=== PATIENT | male | born 1945 | race Caucasian/White ===

== ENCOUNTER 2016-09-10 15:44 | Inpatient (IN) ==
--- NOTE | 2016-09-10 19:29 | Orthopedic Consult Note ---
Date of Encounter: 09/10/16 Time of Encounter: 19:26 Assessment and Plan (1) Hip fracture, left Current Visit: Yes Status: Acute Patient sustained a left hip fracture today, transferred from [facility] for surgical management. He has few comorbities and should be relatively low risk for surgery. Hospitalist following. Plan is for surgery Saturday with . Consent discussed and reviewed with the patient. Left Hip Open reduction and intramedullary nail fixation. He is currently NWB, bed rest, has a scott catheter in currently. Starting foot pumps. ICE as needed Encouraged ankle ROM exercises and IS. Qualifiers: Encounter type: initial encounter Fracture type: closed Qualified Code(s) : S72.002A - Fracture of unspecified part of neck of left femur, initial encounter for closed fracture History of Present Illness Chief complaint: Fall - Left Hip Fracture HPI: Mr. Mao is a 71 year old male, A&O x 3. He presented to ED from [facility]. He had a mechanical fall off a ladder today, falling directly on Left Hip. He denies N/T, LOC, syncope, dizziness. He is unable to ambulate secondary to pain. His pain radiates to his posterior leg. Left leg is shortened and ER. He denies any previous trauma or injury to hip. He has had a wrist fracture and cervical surgery in the past. He has few comorbidities. Past Med Surg Social Fam HX - Past Medical History Medical history: hypertension Psychiatric history: no psych history - Social History Smoking Status: Never smoker Smokeless Tobacco Status: No Alcohol use: none Drug use: none - Family History Father Living Status: Hx Family Cardiac Disorders: Yes ([place]) Hx Family Endocrine Disorder: Yes (DM) Medications and Allergies Allopurinol [Zyloprim] 300 mg PO DAILY 09/10/16 [History] Amlodipine Besylate 10 mg PO DAILY 09/10/16 [History] Aspirin Enteric Coated [Aspirin EC] 81 mg PO DAILY 09/10/16 [History] Hydrochlorothiazide [Microzide] 12.5 mg PO DAILY 09/10/16 [History] Metformin HCl [Metformin HCl ER] 500 mg PO DAILY 09/10/16 [History] [place]-3 Fatty Acids [Fish Oil Concentrate] 1,000 mg PO DAILY 09/10/16 [History] Prazosin HCl [Minipress] 5 mg PO BID 04/03/17 [History] Allergies No Known Allergies Allergy (Verified 08/21/16 20:51) All Systems Reviewed: A 10-system review of systems was performed and is negative for pertinent findings except as documented above in the HPI. - Constitutional Constitutional: as per HPI - Cardiovascular Cardiovascular: as per HPI, no chest pain, no dyspnea, no syncope - Respiratory Respiratory: no cough, no dyspnea, no wheezing - Musculoskeletal Musculoskeletal: abnormal gait, joint swelling, limited range of motion, radiating pain into limb, no numbness, no stiffness Physical Exam - Constitutional Vitals: Temp Pulse Resp BP Pulse Ox 98.8 F 88 16 157/84 93 09/10/16 17:22 09/10/16 17:22 09/10/16 17:22 09/10/16 17:22 09/10/16 17:22 - Fracture left hip Location of fracture: Left Hip Appearance: other (Left leg shortened and ER) Open wound: No open wounds. No ecchymosis or erythema noted. Compartments: soft Distal extremity neurovascularly intact: Yes Proximal joint involvement: No Distal joint involvement: No Results - Labs Labs: All other labs normal. - Diagnostic results Hip x-ray: report reviewed, image reviewed Consult Discharge Plan - Plan Referrals: Lety Ibarra, PROGRAM SERVICES ASSISTANT [Primary Care Provider] -
[2016-09-10 19:41] LABS: INR 1.2; Prothrombin Time 13.1 Seconds (9.4-12.1)
[2016-09-10 19:43] LABS: Basophils % 0.3 %; Eosinophils % 0.1 %; Hematocrit 35.4 % (37.5-50.1); Hemoglobin 12.3 g/dL (12.9-16.9); Immature Granulocytes % 0.6 % (0-4); Lymphocytes # 1.5 K/mcL (0.6-4.6); Lymphocytes % 9.5 %; Mean Corpuscular HGB Conc 34.7 g/dL (31.6-35.5); Mean Corpuscular Hemoglobin 30.8 pg (28.0-33.3); Mean Corpuscular Volume 88.7 fL (83.0-100.0); Mean Platelet Volume 10.2 fL (9.4-12.4); Monocytes % 6.5 %; Neutrophils # 12.9 K/mcL (1.6-8.9); Platelet Count 192 K/mcL (140-400); Red Blood Count 3.99 M/mcL (4.19-5.50); Red Cell Distribution Width 13.7 % (11.5-14.5)
[2016-09-10 19:44] LABS: Activated Partial Thrombo Time 30.8 Seconds (26.0-36.0)
[2016-09-10 19:49] LABS: BUN/Creatinine Ratio 23 (6-26); Blood Urea Nitrogen 21 mg/dL (8-26); Calcium 9.1 mg/dL (8.6-10.8); Carbon Dioxide 23 mEq/L (19-29); Chloride 106 mEq/L (98-109); Glucose 123 mg/dL (70-99); Osmolality,Calculated 296 (280-300); Potassium 4.2 mEq/L (3.5-4.5); Sodium 141 mEq/L (136-145); eGFR For African Americans > 60 (> 60); eGFR For Non-African Americans > 60 (> 60)
--- NOTE | 2016-09-10 20:09 | Internal Med History&Physical ---
Date of Encounter: 09/10/16 Time of Encounter: 20:06 Assessment and Plan (1) Hip fracture, left Current visit: Yes Status: Acute Management per orthopedic surgery. Pain control. Qualifiers: Encounter type: initial encounter Fracture type: closed Qualified Code(s) : S72.002A - Fracture of unspecified part of neck of left femur, initial encounter for closed fracture (2) Intractable pain Current visit: Yes Status: Acute Secondary to hip fracture. Pain control medication. (3) Hypertension Current visit: Yes Status: Acute Resume home medications. Continue monitoring. Qualifiers: Hypertension type: essential hypertension Qualified Code(s): I10 - Essential (primary) hypertension (4) DVT prophylaxis Current visit: Yes Status: Acute DVT prophylaxis according to hospital protocol. (5) Type 2 diabetes mellitus Current visit: Yes Status: Acute Patient on metformin at home, hold metformin while inpatient Monitor Accu-Cheks. Insulin therapy while in-house. Qualifiers: Diabetes mellitus complication status: without complication Diabetes mellitus penitentiary insulin use: without penitentiary use Qualified Code(s): E11.9 - Type 2 diabetes mellitus without complications (6) Hyperlipidemia Current visit: Yes Status: Acute Qualifiers: Hyperlipidemia type: unspecified Qualified Code(s): E78.5 - Hyperlipidemia , unspecified (7) Gallstones Current visit: Yes Status: Acute Asymptomatic at this point. Internal Medicine - H&P: HPI Chief complaint: I had a fall Admitted From: Hospital to Hospital Transfer Plans for Post Hospital Care: [facility] History of present illness: Mr. Mao is a 71 year old male with past medical history of hypertension, diabetes, hyperlipidemia, gallstones, osteoarthritis. The patient states that he had a fall from a ladder today, was found to have a hip fracture and was transferred from [facility] to [facility] for further management and workup. He has been evaluated by the orthopedic surgery team and will be scheduled for the OR accordingly (Left Hip Open reduction and intramedullary nail fixation). At this point he states his pain is 4 out of 10, he denies fever, shortness of breath, diarrhea, constipation, syncope, chest pain, cough, wheezing, skin rash. The patient is very pleasant, he was seen and examined at bedside. The patient denies history of strokes, coronary artery disease, congestive heart failure, chronic kidney disease, chronic liver disease, BPH. He denied the use of Plavix or anticoagulation. He states that has been using 81 mg aspirin on a regular basis, however he did not take it today. Past Med Surg Social Fam HX - Past Medical History Medical history: arthritis, diabetes, hyperlipidemia, hypertension Psychiatric history: no psych history - Social History Smoking Status: Never smoker Smokeless Tobacco Status: No Alcohol use: none Drug use: none - Family History Father Living Status: Hx Family Cardiac Disorders: Yes ([place]) Hx Family Endocrine Disorder: Yes (DM) Internal Medicine - H&P: Meds Allopurinol [Zyloprim] 300 mg PO DAILY 09/10/16 [History] Amlodipine Besylate 10 mg PO DAILY 09/10/16 [History] Aspirin Enteric Coated [Aspirin EC] 81 mg PO DAILY 09/10/16 [History] Hydrochlorothiazide [Microzide] 12.5 mg PO DAILY 09/10/16 [History] Metformin HCl [Metformin HCl ER] 500 mg PO DAILY 09/10/16 [History] [place]-3 Fatty Acids [Fish Oil Concentrate] 1,000 mg PO DAILY 09/10/16 [History] Prazosin HCl [Minipress] 5 mg PO BID 09/10/16 [History] Allergies No Known Allergies Allergy (Verified 08/21/16 20:51) All Systems PM: A 10-system review of systems was performed and is negative for pertinent findings except as documented above in the HPI. - Constitutional Constitutional: as per HPI, no chills, no fever(s), no night sweats - EENT Eyes: as per HPI, no change in vision, no discharge, no pain, no photophobia Ears: as per HPI, no ear discharge, no ear pain, no tinnitus Nose, mouth and throat: as per HPI, no dysphagia, no nasal discharge, no neck pain, no sore throat - Breasts Breasts: as per HPI - Cardiovascular Cardiovascular ROS IM: as per HPI, no chest pain, no diaphoresis, no dyspnea, no lightheadedness, no palpitations, no syncope - Respiratory Respiratory: as per HPI, no cough, no dyspnea, no wheezing, no excessive phlegm production - Gastrointestinal Gastrointestinal: as per HPI, no abdominal pain, no diarrhea, no hematemesis, no hematochezia, no melena, no nausea, no vomiting - Genitourinary Genitourinary ROS male: as per HPI - Musculoskeletal Musculoskeletal ROS IM: as per HPI, no numbness, no tingling - Integumentary Integumentary IM: as per HPI, no rash, no unusual bruising - Neurological Neurological ROS: as per HPI, no confusion, no convulsions, no focal weakness, no numbness, no tingling, no tremor(s) - Psychiatric Psychiatric: as per HPI - Endocrine Endocrine IM: as per HPI - Hematologic/Lymphatic Hematologic/Lymphatic: as per HPI, no easy bruising - Allergic/Immunologic Allergic/Immunologic: as per HPI - Constitutional Vitals: Temp Pulse Resp BP Pulse Ox 98.7 F 86 16 143/72 94 09/10/16 19:28 09/10/16 19:28 09/10/16 19:28 09/10/16 19:28 09/10/16 19:28 General appearance: Present: cooperative, A&O X 3, pleasant, no acute distress Exam: Patient is very pleasant, he is alert, awake, oriented, he was breathing with a nasal cannula, however he was not in respiratory distress. - Head Head exam: Present: atraumatic, normocephalic - Eye Eye exam: Present: PERRL, conjuntiva pink, sclera anicteric Pupils: Present: PERRL - Neck Neck exam general surgery: Present: supple, trachea midline. Absent: lymphadenopathy - Respiratory Respiratory exam: Present: CTAB. Absent: accessory muscle use, rales, rhonchi, wheezes - Cardiovascular Cardiovascular exam: Present: RRR, +S1, +S2. Absent: diastolic murmur, gallop, rubs, systolic murmur - GI/Abdominal GI/Abdominal exam: Present: normal bowel sounds, soft, no peritoneal signs. Absent: distended, tenderness - Extremities Exam Extremities exam: Present: warm, radial pulses palpable and symetrical. Absent : calf tenderness, cyanotic, pedal edema Additional comments: Left lower extremity shortening with external rotation. - Neurological Exam Neurological exam: Present: CN II-XII intact, oriented X3, no focal deficits. Absent: pronater drift, facial droop, speech deficit - Skin Skin exam: Present: dry, intact Internal Med - H&P Results - Labs CBC & Chem 7: 09/10/16 19:02 09/10/16 19:02 Labs: Short CBC 09/10/16 Range/Units 19:02 WBC 15.5 H (4.3-11.1) K/mcL Hgb 12.3 L (12.9-16.9) g/dL Hct 35.4 L (37.5-50.1) % Plt Count 192 (140-400) K/mcL Neutrophils # 12.9 H (1.6-8.9) K/mcL BMP 09/10/16 19:02 Sodium 141 Potassium 4.2 Chloride 106 Carbon Dioxide 23 BUN 21 Creatinine 0.91 Glucose 123 H Calcium 9.1
[2016-09-10] MEDS ORDERED: Dextrose Gel 15 GM PO PRN ×4 (20:17→20:21)
[2016-09-10] MEDS ORDERED: D5% in Water 1,000 ML IVC PRN ×2 (20:17→20:21)
[2016-09-10] MEDS ORDERED: Ondansetron 4 MG/2 ML VIAL IVP PRN (20:17)
[2016-09-10] MEDS ORDERED: Acetaminophen 325 MG TABLET PO PRN (20:17)
[2016-09-10] MEDS ORDERED: *HR* Dextrose 50 % in Water (Syg) 50 ML SYRINGE IVP PRN ×2 (20:17→20:21)
[2016-09-10] MEDS ORDERED: Naloxone 0.4 MG/ML INJ IVP PRN (20:17)
[2016-09-10] MEDS: *HR* OxyCODONE Immed Rel 5 MG TABLET PO PRN (22:27)
[2016-09-10] MEDS: Insulin LISPRO 300 UNITS/3 ML VIAL SQ SCH (22:28)
[2016-09-10] MEDS: 0.9 % Sodium Chloride 1,000 ML IVC SCH (22:29)
[2016-09-11] MEDS: *HR* OxyCODONE Immed Rel 5 MG TABLET PO PRN ×3 (04:25→17:53)
[2016-09-11] MEDS: Famotidine 20 MG/2 ML VIAL IVP SCH ×2 (04:25→16:25)
[2016-09-11] MEDS: *HR* Morphine 2 MG/ML SYRINGE IVP PRN (06:12)
--- NOTE | 2016-09-11 06:55 | Orthopedics Progress Note ---
Date of Encounter: 09/11/16 Time of Encounter: 06:54 Subjective Interval history: Patient seen this morning status post fall yesterday with subtrochanteric left hip fracture. Reviewed risks and benefits as well as recovery of surgery plans for surgery in the morning. Objective Vital signs: Vital Signs Temp Pulse Resp BP Pulse Ox 09/11/16 06:35 98.6 F 72 14 132/73 99 09/11/16 04:38 94 09/11/16 04:14 98.9 F 81 15 129/74 96 09/10/16 23:59 98.9 F 86 19 113/73 95 09/10/16 19:28 98.7 F 86 16 143/72 94 09/10/16 17:22 98.8 F 88 16 157/84 93 Intake and Output 09/10/16 09/10/16 09/11/16 15:59 23:59 07:59 Intake Total 400 / 400 350 / 350 Output Total 850 / 850 625 / 625 Balance -450 / -450 -275 / -275 Intake: Oral 400 / 400 350 / 350 Output: Catheter 850 / 850 625 / 625 Other: Weight 93.712 kg Blood Glucose* 141 - Labs CBC & BMP: 09/10/16 19:02 09/10/16 19:02 Labs: Abnormal lab results WBC 15.5 K/mcL (4.3-11.1) H 09/10/16 19:02 RBC 3.99 M/mcL (4.19-5.50) L 09/10/16 19:02 Hgb 12.3 g/dL (12.9-16.9) L 09/10/16 19:02 Hct 35.4 % (37.5-50.1) L 09/10/16 19:02 Neutrophils # 12.9 K/mcL (1.6-8.9) H 09/10/16 19:02 PT 13.1 Seconds (9.4-12.1) H 09/10/16 19:02 Glucose 123 mg/dL (70-99) H 09/10/16 19:02 POC Glucose 141 (58-89) H 09/10/16 22:27 - VTE Documentation of Mechanical Device: Intermittent pneumatic compression device Consult Discharge Plan - Plan Referrals: Lety Ibarra, ARMORING MACHINE OPERATOR [Primary Care Provider] -
[2016-09-11 07:06] LABS: Basophils % 0.2 %; Eosinophils % 0.4 %; Hematocrit 34.8 % (37.5-50.1); Hemoglobin 11.7 g/dL (12.9-16.9); Immature Granulocytes % 0.6 % (0-4); Lymphocytes # 1.7 K/mcL (0.6-4.6); Lymphocytes % 15.4 %; Mean Corpuscular HGB Conc 33.6 g/dL (31.6-35.5); Mean Corpuscular Hemoglobin 30.1 pg (28.0-33.3); Mean Corpuscular Volume 89.5 fL (83.0-100.0); Mean Platelet Volume 9.9 fL (9.4-12.4); Monocytes # 0.9 K/mcL (0.0-1.3); Monocytes % 7.6 %; Neutrophils # 8.6 K/mcL (1.6-8.9); Platelet Count 171 K/mcL (140-400); Red Blood Count 3.89 M/mcL (4.19-5.50); Red Cell Distribution Width 13.7 % (11.5-14.5); Segmented Neutrophils % 75.8 %
[2016-09-11 07:09] LABS: INR 1.2; Prothrombin Time 13.1 Seconds (9.4-12.1)
[2016-09-11 07:10] LABS: Hemoglobin A1C 5.6 %
[2016-09-11 07:26] LABS: Alanine Aminotransferase 20 Units/L (0-55); Albumin 3.1 g/dL (3.5-5.0); Alkaline Phosphatase 68 Units/L (38-126); Aspartate Amino Transferase 22 Units/L (5-34); BUN/Creatinine Ratio 20 (6-26); Bilirubin,Total 0.9 mg/dL (0.2-1.2); Blood Urea Nitrogen 19 mg/dL (8-26); Calcium 8.8 mg/dL (8.6-10.8); Carbon Dioxide 22 mEq/L (19-29); Chloride 104 mEq/L (98-109); Chol/HDL Ratio 4.8 (0-4.9); Cholesterol 140 mg/dL (< 200); Globulin 3.1 g/dL (2.4-3.5); Glucose 114 mg/dL (70-99); HDL Cholesterol 29 mg/dL (40-59); LDL Cholesterol,Calculated 85 mg/dL (0-99); Magnesium 1.3 mg/dL (1.6-2.6); Osmolality,Calculated 287 (280-300); Potassium 3.9 mEq/L (3.5-4.5); Sodium 137 mEq/L (136-145); Total Protein 6.2 g/dL (6.0-8.3); Triglycerides 128 mg/dL (< 150); eGFR For African Americans > 60 (> 60); eGFR For Non-African Americans > 60 (> 60)
[2016-09-11] MEDS: Insulin LISPRO 300 UNITS/3 ML VIAL SQ SCH ×4 (08:20→21:03)
[2016-09-11] MEDS ORDERED: Magnesium Sulfate 2 GM in D5% in Water 100 ML IVPB ONE (08:21)
[2016-09-11] MEDS: amLODIPine 5 MG TABLET PO SCH (08:30)
--- NOTE | 2016-09-11 09:21 | Internal Med Progress Note ---
Date of Encounter: 09/11/16 Time of Encounter: 09:20 - Assessment and plan (1) Hip fracture, left Current Visit: Yes Status: Acute Assessment and plan: Orthopedic service consulted. Plan for operative repair tomorrow. Pain control with IV morphine. DVT prophylaxis with Lovenox. PTOT consult. Qualifiers: Encounter type: initial encounter Fracture type: closed Qualified Code(s) : S72.002A - Fracture of unspecified part of neck of left femur, initial encounter for closed fracture (2) Hypertension Current Visit: Yes Status: Acute Assessment and plan: Monitor blood pressure closely. Continue with amlodipine. Qualifiers: Hypertension type: essential hypertension Qualified Code(s): I10 - Essential (primary) hypertension (3) DVT prophylaxis Current Visit: Yes Status: Acute Assessment and plan: Subcutaneous Lovenox. (4) Type 2 diabetes mellitus Current Visit: Yes Status: Acute Assessment and plan: Insulin sliding scale. Stop metformin. Blood glucose checks 4 times daily. Qualifiers: Diabetes mellitus complication status: without complication Diabetes mellitus superintendent marine oil terminal insulin use: without superintendent marine oil terminal use Qualified Code(s): E11.9 - Type 2 diabetes mellitus without complications - Subjective Interval history: Patient currently reports left hip pain 4/10 at rest better with IV morphine, becomes 10/10 with movement in bed. He fell off a step ladder yesterday and suffered a left hip fracture. - Constitutional Vitals: Temp Pulse Resp BP Pulse Ox 98.6 F 72 14 132/73 99 09/11/16 06:35 09/11/16 06:35 09/11/16 06:35 09/11/16 06:35 09/11/16 06:35 General appearance: Present: cooperative, A&O X 3, pleasant, no acute distress - Eye Eye exam: Present: PERRL, conjuntiva pink, sclera anicteric Pupils: Present: PERRL - Respiratory Respiratory exam: Present: CTAB. Absent: accessory muscle use, rales, rhonchi, wheezes - Cardiovascular Cardiovascular exam: Present: RRR, +S1, +S2. Absent: diastolic murmur, gallop, rubs, systolic murmur - GI/Abdominal GI/Abdominal exam: Present: normal bowel sounds, soft, no peritoneal signs. Absent: distended, tenderness - Extremities Exam Extremities exam: Present: warm, radial pulses palpable and symetrical. Absent : calf tenderness (LLE shortened and externally rotated), cyanotic, pedal edema - Neurological Exam Neurological exam: Present: CN II-XII intact, oriented X3, no focal deficits. Absent: pronater drift, facial droop, speech deficit - Skin Skin exam: Present: dry, intact Internal Medicine: Result - Labs CBC & Chem 7: 09/11/16 06:03 09/11/16 06:03 Labs: Short CBC 09/10/16 09/11/16 Range/Units 19:02 06:03 WBC 15.5 H 11.3 H (4.3-11.1) K/mcL Hgb 12.3 L 11.7 L (12.9-16.9) g/dL Hct 35.4 L 34.8 L (37.5-50.1) % Plt Count 192 171 (140-400) K/mcL Neutrophils # 12.9 H 8.6 (1.6-8.9) K/mcL BMP 09/10/16 09/11/16 19:02 06:03 Sodium 141 137 Potassium 4.2 3.9 Chloride 106 104 Carbon Dioxide 23 22 BUN 21 19 Creatinine 0.91 0.93 Glucose 123 H 114 H Calcium 9.1 8.8 Liver Function 09/11/16 Range/Units 06:03 Total Bilirubin 0.9 (0.2-1.2) mg/dL AST 22 (5-34) Units/L ALT 20 (0-55) Units/L Alkaline Phosphatase 68 (38-126) Units/L Albumin 3.1 L (3.5-5.0) g/dL - ABG Interpretation ABG results: PT/INR, D-dimer PT 13.1 Seconds (9.4-12.1) H 09/11/16 06:03 - VTE Documentation of Mechanical Device: Intermittent pneumatic compression device Consult Discharge Plan - Plan Additional Instructions: Discharge Instructions: Total Hip Replacement Please call [facility] ([phone]), your Primary Care Physician, or report to the Emergency Room if you have any of the following symptoms: Nausea, vomiting, fever greater that 101.5, swelling, chest pain, shortness of breath, increased pain/redness/drainage/odor for your incision site, numbness/ tingling, or any other concerning symptoms. ACTIVITY:Weight-bearing as tolerated for 8 weeks with hip dislocation precautions that physical therapy taught you. You may progress as tolerated under the guidance of your physical therapist. You do not need to sleep with a pillow between your legs. You can also seep on the operative side or on your stomach. MEDICATIONS: Upon discharge resume your home medications. Take all the medications as prescribed. Take a stool softener if taking narcotic pain medications. Stool softeners are only effective if you drink enough fluids. Drink 6-8 glass of water or fluids a day, unless this is not allowed for another health problem. Despite using stool softeners, if you haven't had a bowel movement in 3 days, please switch to a gentle laxative. Gentle laxatives are sold over the counter. You should have a bowel movement within 24 hours, if not call the office. You will be discharged from the hospital with a prescription for pain medication. You are encouraged to decrease the use of narcotic pain medication as tolerated. Should you require a refill, please call the office. [facility] prescribes narcotic pain medication for only 4-6 weeks after surgery. If you require pain medication beyond this time periord, you may be referred to your Primary Care Physician or to the Pain Clinic for further evaluation. Plan ahead for refills on pain medication as many narcotics either need to be picked up at the office or mailed. It is best to call 48-72 hours in advance of needing a prescription refill so you don't run out of medication. To help control the post-operative pain, you may take NSAIDs (Aleve,Advil, Motrin, ibuprofen, naprosyn) or Tylenol as prescribed on the bottle in addition to the pain medication. ANTICOAGULATION (blood thinners): Continue your Aspirin, Lovenox or Coumadin as prescribed to help prevent a blood clot in the leg or in the lungs. As long as your incision remains dry and you tolerate the NSAIDs (Aleve, Advil, Motrin, ibuprofen, naprosyn), it is OK to use the NSAIDS while you are taking your anticoagulation medication. Should your incision start to drain, stop the NSAID and contact our office. Common symptoms of blood clot in the legs include: localized pain, swelling, calf tenderness, redness or discoloration of the skin. Blood clot in the lung symptoms include: shortness of breath, rapid pulse, sweating, and chest pain that worsens with deep breathing, coughing up blood, lightheadedness, feelings of anxiety. If you experience any of these symptoms notify your physician immediately, go to the emergency room, or if having trouble breathing, call 911. WOUND CARE: Leave the dressing on for 7 days. You may change the dressing if it is saturated greater than 50%. You can shower but not a tub bath or submerge your incision in water. Wash your hands with antibacterial soap, rinse and dry prior to any wound care. If you have kassidy the visiting nurse or rehab facility can remove the stapes 10-14 days after surgery and place steri-strips across the wound. Leave the steri-strips in place until they fall off on their won. You may let water from the shower run on top of the steri-stirips. If you do not have a visiting nurse or rehab facility, you will need to return to the office at 10-14 days for the kassidy to be removed. FOLLOW-UP: Please follow up with your surgeon in the orthopedic clinic in 6 weeks from the day of surgery. If you have kassidy that need to be removed, you will need to come back to the office in 10-14 days from the day of surgery. Referrals: Wilma Jacobs CNP [Advanced Practice Nurse] - 09/26/16 9:00 am Neisha Orellana CNP [Advanced Practice Nurse] - 10/25/16 10:00 am Lety Ibarra CNP [Primary Care Provider] - 11/27/16 9:00 am
[2016-09-11] MEDS: 0.9 % Sodium Chloride 1,000 ML IVC SCH (11:51)
--- NOTE | 2016-09-11 20:59 | Anesthesia Evaluation PreOp ---
Date of Encounter: 09/11/16 Time of Encounter: 20:56 - Past History Planned Operation: L hip IM nail Cardiac History: HTN, Hyperlipidemia Pulmonary History: Denies Any Significant HX SPRAYER HAND History: Denies Any Significant HX Other Medical History: Diabetes Type II (metformin only -- patient says he has "prediabetes" and his A1c is 5.8), Other (gallstones -- patient scheduled for cholecystectomy by Dr. Gonzales October 11, 2016) Anesthesia History: No Prior Anesthetic Complications, Past Anesthesia (neck surgery, etc) Alcohol Use: none Drug use: none Medications and Allergies Allopurinol [Zyloprim] 300 mg PO DAILY 09/10/16 [History] Amlodipine Besylate 10 mg PO DAILY 09/10/16 [History] Aspirin Enteric Coated [Aspirin EC] 81 mg PO DAILY 09/10/16 [History] Hydrochlorothiazide [Microzide] 12.5 mg PO DAILY 09/10/16 [History] Metformin HCl [Metformin HCl ER] 500 mg PO DAILY 09/10/16 [History] [place]-3 Fatty Acids [Fish Oil Concentrate] 1,000 mg PO DAILY 09/10/16 [History] Prazosin HCl [Minipress] 5 mg PO BID 09/10/16 [History] Allergies No Known Allergies Allergy (Verified 08/21/16 20:51) - Meds/Allergy Pre-op Review Medications Reviewed: Yes Allergies Reviewed: Yes Beta Blockers on Current Med List: No Anesthesia Results - Labs 09/11/16 06:03 09/11/16 06:03 Anesthesia Exam Last Vital Signs Temp 97.8 F 09/11/16 19:36 Pulse 61 09/11/16 19:36 Resp 16 09/11/16 19:36 BP 124/80 09/11/16 19:36 Pulse Ox 98 09/11/16 19:36 Weight: 94 kg - HEENT Pupil (Motor): Pupils equal, EOMI Mallampati: III Teeth: Poor dentition Oral Opening: Greater than 3 - SPRAYER HAND LOC: Oriented - Cardiac Rhythm: Regular Murmur: None - Pulmonary Breath Sounds: bilateral Clear Respiratory Effort: Symmetrical Anesthesia Assess/Plan ASA Score: 2 Modified [place] Scale for Level of Consciousness: Cooperative, oriented, and tranquil Anesthetic Plan: General Monitoring Plan: Standard Monitors Recovery Plan: PACU
[2016-09-11] MEDS: *HR* Enoxaparin 30 MG/0.3 ML SYRINGE SQ SCH (21:02)
[2016-09-12] MEDS: *HR* Morphine 2 MG/ML SYRINGE IVP PRN (04:15)
[2016-09-12] MEDS: Famotidine 20 MG/2 ML VIAL IVP SCH ×3 (04:23→18:00)
[2016-09-12] MEDS: *HR* Enoxaparin 30 MG/0.3 ML SYRINGE SQ SCH ×2 (04:23→18:00)
[2016-09-12 06:46] LABS: Basophils % 0.3 %; Eosinophils # 0.1 K/mcL (0.0-0.6); Eosinophils % 0.7 %; Hematocrit 31.2 % (37.5-50.1); Hemoglobin 10.6 g/dL (12.9-16.9); Immature Granulocytes % 0.7 % (0-4); Lymphocytes # 1.5 K/mcL (0.6-4.6); Lymphocytes % 13.6 %; Mean Corpuscular Volume 88.4 fL (83.0-100.0); Monocytes # 0.7 K/mcL (0.0-1.3); Monocytes % 6.8 %; Neutrophils # 8.4 K/mcL (1.6-8.9); Platelet Count 140 K/mcL (140-400); Red Blood Count 3.53 M/mcL (4.19-5.50); Red Cell Distribution Width 13.5 % (11.5-14.5); Segmented Neutrophils % 77.9 %
[2016-09-12 07:02] LABS: BUN/Creatinine Ratio 17 (6-26); Blood Urea Nitrogen 15 mg/dL (8-26); Calcium 8.7 mg/dL (8.6-10.8); Carbon Dioxide 24 mEq/L (19-29); Chloride 102 mEq/L (98-109); Glucose 128 mg/dL (70-99); Magnesium 1.4 mg/dL (1.6-2.6); Osmolality,Calculated 282 (280-300); Potassium 3.9 mEq/L (3.5-4.5); Sodium 135 mEq/L (136-145); eGFR For African Americans > 60 (> 60); eGFR For Non-African Americans > 60 (> 60)
[2016-09-12] MEDS ORDERED: Magnesium Sulfate 2 GM in D5% in Water 100 ML IVPB ONE (07:57)
--- NOTE | 2016-09-12 08:23 | Internal Med Progress Note ---
Date of Encounter: 09/12/16 Time of Encounter: 08:21 - Assessment and plan (1) Hip fracture, left Current Visit: Yes Status: Acute Assessment and plan: 09/12/16: ORIF today at 3pm. Will start D5 w/ NS to avoid starvation ketosis due to prolonged NPO. High risk for morbidity and complications due to major surgery. 09/11/16: Orthopedic service consulted. Plan for operative repair tomorrow. Pain control with IV morphine. DVT prophylaxis with Lovenox. PTOT consult. Qualifiers: Encounter type: initial encounter Fracture type: closed Qualified Code(s) : S72.002A - Fracture of unspecified part of neck of left femur, initial encounter for closed fracture (2) Hypertension Current Visit: Yes Status: Acute Assessment and plan: Monitor blood pressure closely. Continue with amlodipine. Qualifiers: Hypertension type: essential hypertension Qualified Code(s): I10 - Essential (primary) hypertension (3) DVT prophylaxis Current Visit: Yes Status: Acute Assessment and plan: Subcutaneous Lovenox. (4) Type 2 diabetes mellitus Current Visit: Yes Status: Acute Assessment and plan: Insulin sliding scale. Will change to Q6H. Stop metformin. IV D5NS preop Qualifiers: Diabetes mellitus complication status: without complication Diabetes mellitus terminal make up operator insulin use: without alf use Qualified Code(s): E11.9 - Type 2 diabetes mellitus without complications (5) Hypomagnesemia Current Visit: Yes Status: Acute Assessment and plan: replete Mg w/ 2g Mg sulfate iv - Subjective Interval history: Patient currently reports left hip pain 2/10 at rest w/o weakness or numbness. denies fever nausea and abd pain - Constitutional Vitals: Temp Pulse Resp BP Pulse Ox 98.5 F 96 18 156/83 97 09/12/16 06:53 09/12/16 06:53 09/12/16 06:53 09/12/16 06:53 09/12/16 06:53 General appearance: Present: cooperative, A&O X 3, pleasant, no acute distress - Eye Eye exam: Present: PERRL, conjuntiva pink, sclera anicteric Pupils: Present: PERRL - Respiratory Respiratory exam: Present: CTAB. Absent: accessory muscle use, rales, rhonchi, wheezes - Cardiovascular Cardiovascular exam: Present: RRR, +S1, +S2. Absent: diastolic murmur, gallop, rubs, systolic murmur - GI/Abdominal GI/Abdominal exam: Present: normal bowel sounds, soft, no peritoneal signs. Absent: distended, tenderness - Extremities Exam Extremities exam: Absent: calf tenderness, pedal edema Additional comments: left lower extremity shortened and externally rotated Internal Medicine: Result - Labs CBC & Chem 7: 09/12/16 06:06 09/12/16 06:06 Labs: Short CBC 09/12/16 Range/Units 06:06 WBC 10.8 (4.3-11.1) K/mcL Hgb 10.6 L (12.9-16.9) g/dL Hct 31.2 L (37.5-50.1) % Plt Count 140 (140-400) K/mcL Neutrophils # 8.4 (1.6-8.9) K/mcL BMP 09/12/16 06:06 Sodium 135 L Potassium 3.9 Chloride 102 Carbon Dioxide 24 BUN 15 Creatinine 0.86 Glucose 128 H Calcium 8.7 - ABG Interpretation ABG results: PT/INR, D-dimer PT 13.1 Seconds (9.4-12.1) H 09/11/16 06:03 - VTE Documentation of Mechanical Device: Intermittent pneumatic compression device Consult Discharge Plan - Plan Additional Instructions: Discharge Instructions: Total Hip Replacement Please call [facility] ([phone]), your Primary Care Physician, or report to the Emergency Room if you have any of the following symptoms: Nausea, vomiting, fever greater that 101.5, swelling, chest pain, shortness of breath, increased pain/redness/drainage/odor for your incision site, numbness/ tingling, or any other concerning symptoms. ACTIVITY:Weight-bearing as tolerated for 8 weeks with hip dislocation precautions that physical therapy taught you. You may progress as tolerated under the guidance of your physical therapist. You do not need to sleep with a pillow between your legs. You can also seep on the operative side or on your stomach. MEDICATIONS: Upon discharge resume your home medications. Take all the medications as prescribed. Take a stool softener if taking narcotic pain medications. Stool softeners are only effective if you drink enough fluids. Drink 6-8 glass of water or fluids a day, unless this is not allowed for another health problem. Despite using stool softeners, if you haven't had a bowel movement in 3 days, please switch to a gentle laxative. Gentle laxatives are sold over the counter. You should have a bowel movement within 24 hours, if not call the office. You will be discharged from the hospital with a prescription for pain medication. You are encouraged to decrease the use of narcotic pain medication as tolerated. Should you require a refill, please call the office. [facility] prescribes narcotic pain medication for only 4-6 weeks after surgery. If you require pain medication beyond this time periord, you may be referred to your Primary Care Physician or to the Pain Clinic for further evaluation. Plan ahead for refills on pain medication as many narcotics either need to be picked up at the office or mailed. It is best to call 48-72 hours in advance of needing a prescription refill so you don't run out of medication. To help control the post-operative pain, you may take NSAIDs (Aleve,Advil, Motrin, ibuprofen, naprosyn) or Tylenol as prescribed on the bottle in addition to the pain medication. ANTICOAGULATION (blood thinners): Continue your Aspirin, Lovenox or Coumadin as prescribed to help prevent a blood clot in the leg or in the lungs. As long as your incision remains dry and you tolerate the NSAIDs (Aleve, Advil, Motrin, ibuprofen, naprosyn), it is OK to use the NSAIDS while you are taking your anticoagulation medication. Should your incision start to drain, stop the NSAID and contact our office. Common symptoms of blood clot in the legs include: localized pain, swelling, calf tenderness, redness or discoloration of the skin. Blood clot in the lung symptoms include: shortness of breath, rapid pulse, sweating, and chest pain that worsens with deep breathing, coughing up blood, lightheadedness, feelings of anxiety. If you experience any of these symptoms notify your physician immediately, go to the emergency room, or if having trouble breathing, call 911. WOUND CARE: Leave the dressing on for 7 days. You may change the dressing if it is saturated greater than 50%. You can shower but not a tub bath or submerge your incision in water. Wash your hands with antibacterial soap, rinse and dry prior to any wound care. If you have kassidy the visiting nurse or rehab facility can remove the stapes 10-14 days after surgery and place steri-strips across the wound. Leave the steri-strips in place until they fall off on their won. You may let water from the shower run on top of the steri-stirips. If you do not have a visiting nurse or rehab facility, you will need to return to the office at 10-14 days for the kassidy to be removed. FOLLOW-UP: Please follow up with your surgeon in the orthopedic clinic in 6 weeks from the day of surgery. If you have kassidy that need to be removed, you will need to come back to the office in 10-14 days from the day of surgery. Referrals: Wilma Jacobs CNP [Advanced Practice Nurse] - 09/26/16 9:00 am Neisha Orellana CNP [Advanced Practice Nurse] - 10/25/16 10:00 am Lety Ibarra CNP [Primary Care Provider] - 11/27/16 9:00 am
[2016-09-12] MEDS: Insulin LISPRO 300 UNITS/3 ML VIAL SQ SCH ×3 (08:35→19:58)
[2016-09-12] MEDS: amLODIPine 5 MG TABLET PO SCH (09:11)
[2016-09-12] MEDS ORDERED: D5% in 0.9% NACL 1,000 ML IVC SCH (09:15)
--- NOTE | 2016-09-12 10:42 | Orthopedics Progress Note ---
Date of Encounter: 09/12/16 Time of Encounter: 10:42 Subjective Interval history: Patient seen this morning surgical plan reviewed all questions answered. Objective Vital signs: Vital Signs Temp Pulse Resp BP Pulse Ox 09/12/16 06:53 98.5 F 96 18 156/83 97 09/12/16 04:00 98.3 F 91 16 164/88 92 09/12/16 00:00 99.0 F 86 17 134/69 97 09/11/16 19:36 97.8 F 61 16 124/80 98 09/11/16 14:47 97.9 F 89 16 146/79 100 Intake and Output 09/11/16 09/12/16 09/12/16 23:59 07:59 15:59 Intake Total 790 / 790 0 / 0 Output Total 1260 / 1260 825 / 825 600 / 600 Balance -470 / -470 -825 / -825 -600 / -600 Intake: Oral 790 / 790 0 / 0 Output: Urine 460 / 460 Catheter 800 / 800 825 / 825 600 / 600 Other: Meal Dinner Percent of Meal Consumed 100% Weight 93.8 kg Blood Glucose* 187 126 Patient Weight 09/12/16 23:59 Weight 93.8 kg - Labs CBC & BMP: 09/12/16 06:06 09/12/16 06:06 Labs: Abnormal lab results RBC 3.53 M/mcL (4.19-5.50) L 09/12/16 06:06 Hgb 10.6 g/dL (12.9-16.9) L 09/12/16 06:06 Hct 31.2 % (37.5-50.1) L 09/12/16 06:06 PT 13.1 Seconds (9.4-12.1) H 09/11/16 06:03 Sodium 135 mEq/L (136-145) L 09/12/16 06:06 Glucose 128 mg/dL (70-99) H 09/12/16 06:06 POC Glucose 126 (58-89) H 09/12/16 07:14 Magnesium 1.4 mg/dL (1.6-2.6) L 09/12/16 06:06 Albumin 3.1 g/dL (3.5-5.0) L 09/11/16 06:03 Albumin/Globulin Ratio 1.0 (1.1-2.2) L 09/11/16 06:03 HDL Cholesterol 29 mg/dL (40-59) L 09/11/16 06:03 - VTE Documentation of Mechanical Device: Intermittent pneumatic compression device Consult Discharge Plan - Plan Additional Instructions: Discharge Instructions: Total Hip Replacement Please call [facility] ([phone]), your Primary Care Physician, or report to the Emergency Room if you have any of the following symptoms: Nausea, vomiting, fever greater that 101.5, swelling, chest pain, shortness of breath, increased pain/redness/drainage/odor for your incision site, numbness/ tingling, or any other concerning symptoms. ACTIVITY:Weight-bearing as tolerated for 8 weeks with hip dislocation precautions that physical therapy taught you. You may progress as tolerated under the guidance of your physical therapist. You do not need to sleep with a pillow between your legs. You can also seep on the operative side or on your stomach. MEDICATIONS: Upon discharge resume your home medications. Take all the medications as prescribed. Take a stool softener if taking narcotic pain medications. Stool softeners are only effective if you drink enough fluids. Drink 6-8 glass of water or fluids a day, unless this is not allowed for another health problem. Despite using stool softeners, if you haven't had a bowel movement in 3 days, please switch to a gentle laxative. Gentle laxatives are sold over the counter. You should have a bowel movement within 24 hours, if not call the office. You will be discharged from the hospital with a prescription for pain medication. You are encouraged to decrease the use of narcotic pain medication as tolerated. Should you require a refill, please call the office. [facility] prescribes narcotic pain medication for only 4-6 weeks after surgery. If you require pain medication beyond this time periord, you may be referred to your Primary Care Physician or to the Pain Clinic for further evaluation. Plan ahead for refills on pain medication as many narcotics either need to be picked up at the office or mailed. It is best to call 48-72 hours in advance of needing a prescription refill so you don't run out of medication. To help control the post-operative pain, you may take NSAIDs (Aleve,Advil, Motrin, ibuprofen, naprosyn) or Tylenol as prescribed on the bottle in addition to the pain medication. ANTICOAGULATION (blood thinners): Continue your Aspirin, Lovenox or Coumadin as prescribed to help prevent a blood clot in the leg or in the lungs. As long as your incision remains dry and you tolerate the NSAIDs (Aleve, Advil, Motrin, ibuprofen, naprosyn), it is OK to use the NSAIDS while you are taking your anticoagulation medication. Should your incision start to drain, stop the NSAID and contact our office. Common symptoms of blood clot in the legs include: localized pain, swelling, calf tenderness, redness or discoloration of the skin. Blood clot in the lung symptoms include: shortness of breath, rapid pulse, sweating, and chest pain that worsens with deep breathing, coughing up blood, lightheadedness, feelings of anxiety. If you experience any of these symptoms notify your physician immediately, go to the emergency room, or if having trouble breathing, call 911. WOUND CARE: Leave the dressing on for 7 days. You may change the dressing if it is saturated greater than 50%. You can shower but not a tub bath or submerge your incision in water. Wash your hands with antibacterial soap, rinse and dry prior to any wound care. If you have kassidy the visiting nurse or rehab facility can remove the stapes 10-14 days after surgery and place steri-strips across the wound. Leave the steri-strips in place until they fall off on their won. You may let water from the shower run on top of the steri-stirips. If you do not have a visiting nurse or rehab facility, you will need to return to the office at 10-14 days for the kassidy to be removed. FOLLOW-UP: Please follow up with your surgeon in the orthopedic clinic in 6 weeks from the day of surgery. If you have kassidy that need to be removed, you will need to come back to the office in 10-14 days from the day of surgery. Referrals: Wilma Jacobs CNP [Advanced Practice Nurse] - 09/26/16 9:00 am Neisha Orellana CNP [Advanced Practice Nurse] - 10/25/16 10:00 am Lety Ibarra CNP [Primary Care Provider] - 11/27/16 9:00 am
[2016-09-12] MEDS ORDERED: *HR* FentaNYL (PF) 100 MCG/2 ML VIAL ONE (13:50)
[2016-09-12] MEDS ORDERED: *HR* Propofol 200 MG/20 ML VIAL IVP ONE (13:50)
[2016-09-12] MEDS ORDERED: Lidocaine -MPF 2% 2 ML VIAL ONE (13:53)
[2016-09-12] MEDS ORDERED: *HR* HYDROmorphone 2 MG/ML SYRINGE ONE (15:05)
--- NOTE | 2016-09-12 15:20 | Orthopedic Operative Note ---
Date of procedure: 09/12/16 Pre-op diagnosis: Left subtrochanteric hip fracture Post-op diagnosis: same Procedure: Procedure: Left hip open reduction intramedullary nail fixation Estimated blood loss: 50 cc Hardware:Synthes 10 x 1 30 TFN, 100 helical blade, 36 distal locking bolt Operative procedure: The patient was brought to the operating room and placed on the operating room table. After general anesthesia was administered the well leg was place in the well leg coughlin and the operative leg was placed in the fracture leg coughlin. All pressure points were padded appropriately. The operative extremity was prepped and draped in the sterile surgical fashion patient received IV antibiotic prior to skin incision. A standard direct lateral approach was made over the entry point of the greater trochanter, the incision was made through the skin and subcutaneous tissue hemostasis was obtained with Bovie cautery. Using careful sharp dissection the fascia was identified and incised, flouroscopic assistance was used to identify the entry point. The guidepin was placed at the entry point using fluroscopic assistance, it was over reamed with the proximal reamer. The 10 x 130 nail was placed through the entry hole, across the fracture site into the distal fragment. the position was confirmed with fluroscopy. A guide pin was placed through the proximal locking guide from the lateral femur through the nail across the fracture site into the femoral head, it was over reamed with the reamer. The 100 mm helical blade was placed over the guide pin through the nail into the femoral head, locked in place with the proximal locking bolt. 36 mm Distal locking bolt was placed through the distal locking guide. position of hardware and fracture reduction found to be acceptable with fluroscopic assistance. The wound was irrigated. Fascia was closed with a running #2 PDS suture. The deep tissue was irrigated and closed deep with #1 PDS suture superficially with 0 PDS suture and skin was closed with skin kassidy The patient was placed in a sterile dressing The patient was extubated and transferred to the recovery room in stable condition. Anesthesia: GETA Surgeon: Dereck Latif Condition: stable Disposition: PACU
[2016-09-12 16:11] LABS: Hematocrit 33.5 % (37.5-50.1); Hemoglobin 11.6 g/dL (12.9-16.9)
[2016-09-12] MEDS ORDERED: *HR* HYDROmorphone (PF) 1 MG/ML SYRINGE IVP PRN (16:27)
[2016-09-12] MEDS ORDERED: *HR* Labetalol 20 MG/4 ML SYRINGE IVP PRN (16:28)
[2016-09-12] MEDS ORDERED: *HR* HYDROmorphone (PF) 1 MG/ML SYRINGE ONE (16:30)
--- NOTE | 2016-09-12 17:05 | Anesthesia Evaluation Post Op ---
Date of Encounter: 09/12/16 Time of Encounter: 17:00 - Vital Signs Vital Signs: VSS - Lungs Lungs: Clear Ascult./Percussion - Airway Airway: Non-obstructed - Cardiovascular Regular Rate, Baseline Rhythm - Mental Status Mental Status: Alert & Oriented, Answers Appropriately - Pain Pain Scale: 0 Pain Scale used: Numeric (1 - 10) - Nausea Vomiting Nausea Vomiting: Not Present - Hydration Hydration: Ice chips - Discharge PostOp Status: Transfer Patient to floor
[2016-09-12] MEDS ORDERED: Dextrose Gel 15 GM PO PRN ×4 (17:11)
[2016-09-12] MEDS ORDERED: Naloxone 0.4 MG/ML INJ IVP PRN (17:11)
[2016-09-12] MEDS ORDERED: Ondansetron 4 MG/2 ML VIAL IVP PRN (17:11)
[2016-09-12] MEDS ORDERED: ceFAZolin 2,000 MG in D5% in Water 100 ML IVPB SCH (17:11)
[2016-09-12] MEDS ORDERED: Acetaminophen 325 MG TABLET PO PRN (17:11)
[2016-09-12] MEDS ORDERED: *HR* Dextrose 50 % in Water (Syg) 50 ML SYRINGE IVP PRN (17:11)
[2016-09-12] MEDS ORDERED: *HR* Morphine 2 MG/ML SYRINGE IVP PRN (17:11)
[2016-09-12] MEDS ORDERED: D5% in Water 1,000 ML IVC PRN (17:11)
[2016-09-12] MEDS: ceFAZolin 2,000 MG in D5% in Water 100 ML IVPB SCH (22:48)
[2016-09-13] MEDS: *HR* OxyCODONE Immed Rel 5 MG TABLET PO PRN ×3 (03:04→15:33)
[2016-09-13 04:58] LABS: Hematocrit 28.3 % (37.5-50.1); Hemoglobin 10.1 g/dL (12.9-16.9)
[2016-09-13] MEDS: *HR* Enoxaparin 30 MG/0.3 ML SYRINGE SQ SCH ×2 (05:17→16:59)
[2016-09-13] MEDS: Famotidine 20 MG/2 ML VIAL IVP SCH ×2 (05:17→17:00)
[2016-09-13] MEDS: ceFAZolin 2,000 MG in D5% in Water 100 ML IVPB SCH (05:49)
[2016-09-13] MEDS: D5% in 0.9% NACL 1,000 ML IVC SCH ×2 (06:41→08:11)
[2016-09-13] MEDS: amLODIPine 5 MG TABLET PO SCH (08:10)
[2016-09-13] MEDS: Insulin LISPRO 300 UNITS/3 ML VIAL SQ SCH ×4 (08:10→21:25)
--- NOTE | 2016-09-13 08:11 | Orthopedics Progress Note ---
Date of Encounter: 09/13/16 Time of Encounter: 08:09 Subjective Interval history: Patient was seen this morning doing well without complaints. Afebrile vital signs stable. Operative extremity: Neurovascularly intact Dressing clean dry and intact Calves nontender Assessment and plan: Continue with postoperative care ortho stable Objective Vital signs: Vital Signs Temp Pulse Resp BP Pulse Ox 09/13/16 06:58 98.5 F 78 16 146/76 98 09/13/16 04:00 98.1 F 94 17 130/69 97 09/13/16 00:41 98.4 F 99 16 147/78 97 09/12/16 20:19 96 09/12/16 20:08 98.7 F 103 16 160/80 92 09/12/16 19:46 95 09/12/16 19:25 99 F 104 18 176/78 95 09/12/16 18:31 98.6 F 102 18 168/73 92 09/12/16 18:03 98.9 F 99 18 150/90 93 09/12/16 17:18 98.0 F 96 18 112/91 93 09/12/16 17:09 99.2 F 88 16 158/88 93 09/12/16 17:00 89 18 160/87 95 09/12/16 16:50 99.2 F 86 18 163/99 93 09/12/16 16:40 106 18 164/89 93 09/12/16 16:30 105 18 154/90 92 09/12/16 16:20 99.5 F 108 20 162/93 92 09/12/16 16:10 104 18 148/96 92 09/12/16 16:00 99.1 F 109 20 168/93 90 09/12/16 15:50 101 22 167/87 94 09/12/16 15:40 100.6 F H 100 20 185/88 93 09/12/16 11:28 98.2 F 84 16 131/71 94 Intake and Output 09/12/16 09/13/16 09/13/16 23:59 07:59 15:59 Intake Total 100 / 100 350 / 350 Output Total 600 / 600 650 / 650 Balance -500 / -500 -300 / -300 Intake: IV Fluids 100 / 100 Ancef 2,000 MG In 100 / 100 Dextrose 5% 100 ML @ 200 mls/hr IVPB Q8H [facility] Rx#: [id number] Oral 100 / 100 250 / 250 Output: Urine Amount (Catheter) 350 / 350 Catheter 250 / 250 650 / 650 Other: Blood Glucose* 243 164 - Labs CBC & BMP: 09/13/16 03:56 09/12/16 06:06 Labs: Abnormal lab results RBC 3.53 M/mcL (4.19-5.50) L 09/12/16 06:06 Hgb 10.1 g/dL (12.9-16.9) L D 09/13/16 03:56 Hct 28.3 % (37.5-50.1) L 09/13/16 03:56 PT 13.1 Seconds (9.4-12.1) H 09/11/16 06:03 Sodium 135 mEq/L (136-145) L 09/12/16 06:06 Glucose 128 mg/dL (70-99) H 09/12/16 06:06 POC Glucose 123 (58-89) H 09/12/16 15:40 Magnesium 1.4 mg/dL (1.6-2.6) L 09/12/16 06:06 Albumin 3.1 g/dL (3.5-5.0) L 09/11/16 06:03 Albumin/Globulin Ratio 1.0 (1.1-2.2) L 09/11/16 06:03 HDL Cholesterol 29 mg/dL (40-59) L 09/11/16 06:03 - VTE Documentation of Mechanical Device: Intermittent pneumatic compression device Consult Discharge Plan - Plan Additional Instructions: Discharge Instructions: Total Hip Replacement Please call [facility] ([phone]), your Primary Care Physician, or report to the Emergency Room if you have any of the following symptoms: Nausea, vomiting, fever greater that 101.5, swelling, chest pain, shortness of breath, increased pain/redness/drainage/odor for your incision site, numbness/ tingling, or any other concerning symptoms. ACTIVITY:Weight-bearing as tolerated for 8 weeks with hip dislocation precautions that physical therapy taught you. You may progress as tolerated under the guidance of your physical therapist. You do not need to sleep with a pillow between your legs. You can also seep on the operative side or on your stomach. MEDICATIONS: Upon discharge resume your home medications. Take all the medications as prescribed. Take a stool softener if taking narcotic pain medications. Stool softeners are only effective if you drink enough fluids. Drink 6-8 glass of water or fluids a day, unless this is not allowed for another health problem. Despite using stool softeners, if you haven't had a bowel movement in 3 days, please switch to a gentle laxative. Gentle laxatives are sold over the counter. You should have a bowel movement within 24 hours, if not call the office. You will be discharged from the hospital with a prescription for pain medication. You are encouraged to decrease the use of narcotic pain medication as tolerated. Should you require a refill, please call the office. [facility] prescribes narcotic pain medication for only 4-6 weeks after surgery. If you require pain medication beyond this time periord, you may be referred to your Primary Care Physician or to the Pain Clinic for further evaluation. Plan ahead for refills on pain medication as many narcotics either need to be picked up at the office or mailed. It is best to call 48-72 hours in advance of needing a prescription refill so you don't run out of medication. To help control the post-operative pain, you may take NSAIDs (Aleve,Advil, Motrin, ibuprofen, naprosyn) or Tylenol as prescribed on the bottle in addition to the pain medication. ANTICOAGULATION (blood thinners): Continue your Aspirin, Lovenox or Coumadin as prescribed to help prevent a blood clot in the leg or in the lungs. As long as your incision remains dry and you tolerate the NSAIDs (Aleve, Advil, Motrin, ibuprofen, naprosyn), it is OK to use the NSAIDS while you are taking your anticoagulation medication. Should your incision start to drain, stop the NSAID and contact our office. Common symptoms of blood clot in the legs include: localized pain, swelling, calf tenderness, redness or discoloration of the skin. Blood clot in the lung symptoms include: shortness of breath, rapid pulse, sweating, and chest pain that worsens with deep breathing, coughing up blood, lightheadedness, feelings of anxiety. If you experience any of these symptoms notify your physician immediately, go to the emergency room, or if having trouble breathing, call 911. WOUND CARE: Leave the dressing on for 7 days. You may change the dressing if it is saturated greater than 50%. You can shower but not a tub bath or submerge your incision in water. Wash your hands with antibacterial soap, rinse and dry prior to any wound care. If you have kassidy the visiting nurse or rehab facility can remove the stapes 10-14 days after surgery and place steri-strips across the wound. Leave the steri-strips in place until they fall off on their won. You may let water from the shower run on top of the steri-stirips. If you do not have a visiting nurse or rehab facility, you will need to return to the office at 10-14 days for the kassidy to be removed. FOLLOW-UP: Please follow up with your surgeon in the orthopedic clinic in 6 weeks from the day of surgery. If you have kassidy that need to be removed, you will need to come back to the office in 10-14 days from the day of surgery. Referrals: Wilma Jacobs CNP [Advanced Practice Nurse] - 09/26/16 9:00 am Neisha Orellana CNP [Advanced Practice Nurse] - 10/25/16 10:00 am Lety Ibarra CNP [Primary Care Provider] - 11/27/16 9:00 am
--- NOTE | 2016-09-13 09:40 | Internal Med Progress Note ---
Date of Encounter: 09/13/16 Time of Encounter: 09:38 - Assessment and plan (1) Hip fracture, left Current Visit: Yes Status: Acute Assessment and plan: 09/13/2016: Status post ORIF yesterday, tolerated the procedure well, PT evaluation. 09/12/16: ORIF today at 3pm. Will start D5 w/ NS to avoid starvation ketosis due to prolonged NPO. High risk for morbidity and complications due to major surgery. 09/11/16: Orthopedic service consulted. Plan for operative repair tomorrow. Pain control with IV morphine. DVT prophylaxis with Lovenox. PTOT consult. Qualifiers: Encounter type: initial encounter Fracture type: closed Qualified Code(s) : S72.002A - Fracture of unspecified part of neck of left femur, initial encounter for closed fracture (2) Hypertension Current Visit: Yes Status: Acute Assessment and plan: Monitor blood pressure closely. Continue with amlodipine. Qualifiers: Hypertension type: essential hypertension Qualified Code(s): I10 - Essential (primary) hypertension (3) DVT prophylaxis Current Visit: Yes Status: Acute Assessment and plan: Subcutaneous Lovenox. (4) Type 2 diabetes mellitus Current Visit: Yes Status: Acute Assessment and plan: Insulin sliding scale. Will change to Q6H. Stop metformin. IV D5NS preop Qualifiers: Diabetes mellitus complication status: without complication Diabetes mellitus intermediate insulin use: without intermediate use Qualified Code(s): E11.9 - Type 2 diabetes mellitus without complications (5) Hypomagnesemia Current Visit: Yes Status: Acute Assessment and plan: check magnesium in the morning - Subjective Interval history: Patient currently reports mild left hip pain relieved with oral pain medication. He had ORIF of the left hip yesterday, currently sitting up. denies fever nausea and abd pain - Constitutional Vitals: Temp Pulse Resp BP Pulse Ox 98.5 F 78 16 146/76 98 09/13/16 06:58 09/13/16 06:58 09/13/16 06:58 09/13/16 06:58 09/13/16 06:58 General appearance: Present: cooperative, A&O X 3, pleasant, no acute distress - Respiratory Respiratory exam: Present: CTAB. Absent: accessory muscle use, rales, rhonchi, wheezes - Cardiovascular Cardiovascular exam: Present: RRR, +S1, +S2. Absent: diastolic murmur, gallop, rubs, systolic murmur - GI/Abdominal GI/Abdominal exam: Present: normal bowel sounds, soft, no peritoneal signs. Absent: distended, tenderness - Extremities Exam Extremities exam: Present: warm, radial pulses palpable and symetrical. Absent : calf tenderness, cyanotic, pedal edema Additional comments: Left hip surgical dressing in place, no bruising or hematoma - Skin Skin exam: Present: dry, intact Internal Medicine: Result - Labs CBC & Chem 7: 09/13/16 03:56 09/12/16 06:06 Labs: Short CBC 09/12/16 09/13/16 Range/Units 16:03 03:56 Hgb 11.6 L 10.1 L D (12.9-16.9) g/dL Hct 33.5 L 28.3 L (37.5-50.1) % - ABG Interpretation ABG results: PT/INR, D-dimer PT 13.1 Seconds (9.4-12.1) H 09/11/16 06:03 - Impressions Impressions Fluoroscopy 09/12/16 00:00 IMPRESSION: Intraprocedural fluoroscopic spot images as above. See separate procedure report for more information. D/ / 09/12/2016 15:45:20 Ortiz Mo MD / emily Interpreting Provider: Ortiz Mo MD Hip X-Ray 09/12/16 00:00 IMPRESSION: Intraprocedural fluoroscopic spot images as above. See separate procedure report for more information. D/ / 09/12/2016 15:45:20 Ortiz Mo MD / emily Interpreting Provider: Ortiz Mo MD Hip X-Ray 09/12/16 15:18 IMPRESSION: Status post ORIF of the left proximal femur with no evidence for immediate postoperative complication. D/ / Clay Valentin MD / Clay Valentin MD Interpreting Provider: Clay Valentin MD - VTE Documentation of Mechanical Device: Intermittent pneumatic compression device Consult Discharge Plan - Plan Additional Instructions: Discharge Instructions: Total Hip Replacement Please call [facility] ([phone]), your Primary Care Physician, or report to the Emergency Room if you have any of the following symptoms: Nausea, vomiting, fever greater that 101.5, swelling, chest pain, shortness of breath, increased pain/redness/drainage/odor for your incision site, numbness/ tingling, or any other concerning symptoms. ACTIVITY:Weight-bearing as tolerated for 8 weeks with hip dislocation precautions that physical therapy taught you. You may progress as tolerated under the guidance of your physical therapist. You do not need to sleep with a pillow between your legs. You can also seep on the operative side or on your stomach. MEDICATIONS: Upon discharge resume your home medications. Take all the medications as prescribed. Take a stool softener if taking narcotic pain medications. Stool softeners are only effective if you drink enough fluids. Drink 6-8 glass of water or fluids a day, unless this is not allowed for another health problem. Despite using stool softeners, if you haven't had a bowel movement in 3 days, please switch to a gentle laxative. Gentle laxatives are sold over the counter. You should have a bowel movement within 24 hours, if not call the office. You will be discharged from the hospital with a prescription for pain medication. You are encouraged to decrease the use of narcotic pain medication as tolerated. Should you require a refill, please call the office. [facility] prescribes narcotic pain medication for only 4-6 weeks after surgery. If you require pain medication beyond this time periord, you may be referred to your Primary Care Physician or to the Pain Clinic for further evaluation. Plan ahead for refills on pain medication as many narcotics either need to be picked up at the office or mailed. It is best to call 48-72 hours in advance of needing a prescription refill so you don't run out of medication. To help control the post-operative pain, you may take NSAIDs (Aleve,Advil, Motrin, ibuprofen, naprosyn) or Tylenol as prescribed on the bottle in addition to the pain medication. ANTICOAGULATION (blood thinners): Continue your Aspirin, Lovenox or Coumadin as prescribed to help prevent a blood clot in the leg or in the lungs. As long as your incision remains dry and you tolerate the NSAIDs (Aleve, Advil, Motrin, ibuprofen, naprosyn), it is OK to use the NSAIDS while you are taking your anticoagulation medication. Should your incision start to drain, stop the NSAID and contact our office. Common symptoms of blood clot in the legs include: localized pain, swelling, calf tenderness, redness or discoloration of the skin. Blood clot in the lung symptoms include: shortness of breath, rapid pulse, sweating, and chest pain that worsens with deep breathing, coughing up blood, lightheadedness, feelings of anxiety. If you experience any of these symptoms notify your physician immediately, go to the emergency room, or if having trouble breathing, call 911. WOUND CARE: Leave the dressing on for 7 days. You may change the dressing if it is saturated greater than 50%. You can shower but not a tub bath or submerge your incision in water. Wash your hands with antibacterial soap, rinse and dry prior to any wound care. If you have kassidy the visiting nurse or rehab facility can remove the stapes 10-14 days after surgery [address] steri-strips across the wound. Leave the steri-strips in place until they fall off on their won. You may let water from the shower run on top of the steri-stirips. If you do not have a visiting nurse or rehab facility, you will need to return to the office at 10-14 days for the kassidy to be removed. FOLLOW-UP: Please follow up with your surgeon in the orthopedic clinic in 6 weeks from the day of surgery. If you have kassidy that need to be removed, you will need to come back to the office in 10-14 days from the day of surgery. Referrals: Wilma Jacobs CNP [Advanced Practice Nurse] - 09/26/16 9:00 am Neisha Orellana CNP [Advanced Practice Nurse] - 10/25/16 10:00 am Lety Ibarra CNP [Primary Care Provider] - 11/27/16 9:00 am
[2016-09-14 05:23] LABS: Basophils % 0.2 %; Eosinophils % 0.2 %; Hematocrit 26.6 % (37.5-50.1); Hemoglobin 9.2 g/dL (12.9-16.9); Immature Granulocytes % 0.8 % (0-4); Lymphocytes # 1.6 K/mcL (0.6-4.6); Lymphocytes % 13.2 %; Mean Corpuscular HGB Conc 34.6 g/dL (31.6-35.5); Mean Corpuscular Hemoglobin 30.3 pg (28.0-33.3); Mean Corpuscular Volume 87.5 fL (83.0-100.0); Mean Platelet Volume 10.3 fL (9.4-12.4); Monocytes # 0.9 K/mcL (0.0-1.3); Monocytes % 7.2 %; Neutrophils # 9.4 K/mcL (1.6-8.9); Platelet Count 158 K/mcL (140-400); Red Blood Count 3.04 M/mcL (4.19-5.50); Red Cell Distribution Width 13.5 % (11.5-14.5); Segmented Neutrophils % 78.4 %
[2016-09-14] MEDS: Famotidine 20 MG/2 ML VIAL IVP SCH (05:44)
[2016-09-14] MEDS: *HR* Enoxaparin 30 MG/0.3 ML SYRINGE SQ SCH (05:44)
[2016-09-14 05:50] LABS: BUN/Creatinine Ratio 21 (6-26); Blood Urea Nitrogen 20 mg/dL (8-26); Calcium 8.5 mg/dL (8.6-10.8); Carbon Dioxide 26 mEq/L (19-29); Chloride 103 mEq/L (98-109); Glucose 123 mg/dL (70-99); Magnesium 1.6 mg/dL (1.6-2.6); Osmolality,Calculated 292 (280-300); Potassium 4.2 mEq/L (3.5-4.5); Sodium 139 mEq/L (136-145); eGFR For African Americans > 60 (> 60); eGFR For Non-African Americans > 60 (> 60)
--- NOTE | 2016-09-14 06:17 | Orthopedics Progress Note ---
Date of Encounter: 09/14/16 Time of Encounter: 06:16 Subjective Interval history: Patient was seen this morning doing well without complaints. Afebrile vital signs stable. Operative extremity: Neurovascularly intact Dressing clean dry and intact Calves nontender Assessment and plan: Continue with postoperative care ortho stable for dc [id number] Objective Vital signs: Vital Signs Temp Pulse Resp BP Pulse Ox 09/14/16 00:00 98.1 F 90 17 120/73 94 09/13/16 20:00 98.0 F 103 18 136/71 93 09/13/16 14:32 98.3 F 93 16 131/65 94 09/13/16 11:01 98.5 F 88 16 151/67 94 09/13/16 09:00 98 09/13/16 06:58 98.5 F 78 16 146/76 98 Intake and Output 09/13/16 09/13/16 09/14/16 15:59 23:59 07:59 Intake Total 1360 / 1360 400 / 400 100 / 100 Output Total 725 / 725 1075 / 1075 Balance 1360 / 1360 -325 / -325 -975 / -975 Intake: IV Fluids 1000 / 1000 D5% And 0.9% Nacl 1000 Ml 1000 / 1000 1,000 ML @ 75 mls/hr IVC .[id number] Rx#: [id number] Oral 360 / 360 400 / 400 100 / 100 Output: Urine 725 / 725 1075 / 1075 Other: Meal Breakfast Percent of Meal Consumed 100% Blood Glucose* 158 198 - Labs CBC & BMP: 09/14/16 05:01 09/14/16 05:01 Labs: Abnormal lab results WBC 12.0 K/mcL (4.3-11.1) H 09/14/16 05:01 RBC 3.04 M/mcL (4.19-5.50) L 09/14/16 05:01 Hgb 9.2 g/dL (12.9-16.9) L 09/14/16 05:01 Hct 26.6 % (37.5-50.1) L 09/14/16 05:01 Neutrophils # 9.4 K/mcL (1.6-8.9) H 09/14/16 05:01 PT 13.1 Seconds (9.4-12.1) H 09/11/16 06:03 Glucose 123 mg/dL (70-99) H 09/14/16 05:01 POC Glucose 159 (58-89) H 09/13/16 16:05 Calcium 8.5 mg/dL (8.6-10.8) L 09/14/16 05:01 Albumin 3.1 g/dL (3.5-5.0) L 09/11/16 06:03 Albumin/Globulin Ratio 1.0 (1.1-2.2) L 09/11/16 06:03 HDL Cholesterol 29 mg/dL (40-59) L 09/11/16 06:03 - VTE Documentation of Mechanical Device: Venous foot pump, device Consult Discharge Plan - Plan Additional Instructions: Discharge Instructions: Total Hip Replacement Please call [facility] ([phone]), your Primary Care Physician, or report to the Emergency Room if you have any of the following symptoms: Nausea, vomiting, fever greater that 101.5, swelling, chest pain, shortness of breath, increased pain/redness/drainage/odor for your incision site, numbness/ tingling, or any other concerning symptoms. ACTIVITY:Weight-bearing as tolerated for 8 weeks with hip dislocation precautions that physical therapy taught you. You may progress as tolerated under the guidance of your physical therapist. You do not need to sleep with a pillow between your legs. You can also seep on the operative side or on your stomach. MEDICATIONS: Upon discharge resume your home medications. Take all the medications as prescribed. Take a stool softener if taking narcotic pain medications. Stool softeners are only effective if you drink enough fluids. Drink 6-8 glass of water or fluids a day, unless this is not allowed for another health problem. Despite using stool softeners, if you haven't had a bowel movement in 3 days, please switch to a gentle laxative. Gentle laxatives are sold over the counter. You should have a bowel movement within 24 hours, if not call the office. You will be discharged from the hospital with a prescription for pain medication. You are encouraged to decrease the use of narcotic pain medication as tolerated. Should you require a refill, please call the office. [facility] prescribes narcotic pain medication for only 4-6 weeks after surgery. If you require pain medication beyond this time periord, you may be referred to your Primary Care Physician or to the Pain Clinic for further evaluation. Plan ahead for refills on pain medication as many narcotics either need to be picked up at the office or mailed. It is best to call 48-72 hours in advance of needing a prescription refill so you don't run out of medication. To help control the post-operative pain, you may take NSAIDs (Aleve,Advil, Motrin, ibuprofen, naprosyn) or Tylenol as prescribed on the bottle in addition to the pain medication. ANTICOAGULATION (blood thinners): Continue your Aspirin, Lovenox or Coumadin as prescribed to help prevent a blood clot in the leg or in the lungs. As long as your incision remains dry and you tolerate the NSAIDs (Aleve, Advil, Motrin, ibuprofen, naprosyn), it is OK to use the NSAIDS while you are taking your anticoagulation medication. Should your incision start to drain, stop the NSAID and contact our office. Common symptoms of blood clot in the legs include: localized pain, swelling, calf tenderness, redness or discoloration of the skin. Blood clot in the lung symptoms include: shortness of breath, rapid pulse, sweating, and chest pain that worsens with deep breathing, coughing up blood, lightheadedness, feelings of anxiety. If you experience any of these symptoms notify your physician immediately, go to the emergency room, or if having trouble breathing, call 911. WOUND CARE: Leave the dressing on for 7 days. You may change the dressing if it is saturated greater than 50%. You can shower but not a tub bath or submerge your incision in water. Wash your hands with antibacterial soap, rinse and dry prior to any wound care. If you have kassidy the visiting nurse or rehab facility can remove the stapes 10-14 days after surgery and [address] steri-strips across the wound. Leave the steri-strips in place until they fall off on their won. You may let water from the shower run on top of the steri-stirips. If you do not have a visiting nurse or rehab facility, you will need to return to the office at 10-14 days for the kassidy to be removed. FOLLOW-UP: Please follow up with your surgeon in the orthopedic clinic in 6 weeks from the day of surgery. If you have kassidy that need to be removed, you will need to come back to the office in 10-14 days from the day of surgery. Referrals: Wilma Jacobs CNP [Advanced Practice Nurse] - 09/26/16 9:00 am Neisha Orellana CNP [Advanced Practice Nurse] - 10/25/16 10:00 am Lety Ibarra CNP [Primary Care Provider] - 11/27/16 9:00 am
[2016-09-14] MEDS: *HR* OxyCODONE Immed Rel 5 MG TABLET PO PRN (07:32)
[2016-09-14] MEDS: amLODIPine 5 MG TABLET PO SCH (07:32)
[2016-09-14] MEDS: Insulin LISPRO 300 UNITS/3 ML VIAL SQ SCH (07:33)
--- NOTE | 2016-09-14 10:38 | Discharge Summary ---
Date of Encounter: 09/14/16 Time of Encounter: 10:34 - Discharge Diagnosis (1) Hip fracture, left Priority: Primary Status: Acute Qualifiers: Encounter type: initial encounter Fracture type: closed Qualified Code(s) : S72.002A - Fracture of unspecified part of neck of left femur, initial encounter for closed fracture (2) Hypertension Priority: Secondary Status: Acute Qualifiers: Hypertension type: essential hypertension Qualified Code(s): I10 - Essential (primary) hypertension (3) DVT prophylaxis Priority: Secondary Status: Acute (4) Type 2 diabetes mellitus Priority: Secondary Status: Acute Qualifiers: Diabetes mellitus complication status: without complication Diabetes mellitus intermediate insulin use: without intermediate use Qualified Code(s): E11.9 - Type 2 diabetes mellitus without complications (5) Hypomagnesemia Priority: Secondary Status: Acute - Discharge Medications Home Medications: Allopurinol [Zyloprim] 300 mg PO DAILY 09/10/16 [History] Amlodipine Besylate 10 mg PO DAILY 09/10/16 [History] Aspirin Enteric Coated [Aspirin EC] 81 mg PO DAILY 09/10/16 [History] Hydrochlorothiazide [Microzide] 12.5 mg PO DAILY 09/10/16 [History] Metformin HCl [Metformin HCl ER] 500 mg PO DAILY 09/10/16 [History] [place]-3 Fatty Acids [Fish Oil Concentrate] 1,000 mg PO DAILY 09/10/16 [History] Prazosin HCl [Minipress] 5 mg PO BID 09/10/16 [History] Allergies/Adverse Reactions: Allergies No Known Allergies Allergy (Verified 08/21/16 20:51) Date of admission: 09/10/16 21:23 Primary care physician: Lety Ibarra CNP Consults: 09/12/16 17:11 Consult to Occupational Therapy [CONS] Routine Comment: Evaluate, develop and implement POC Consult to Orthopedic Navigator [CONS] [CONS] Routine Consult to Physical Therapy [CONS] Routine Comment: Evaluate, develop and implement POC RT Post Op Consult [CONS] Routine - Patient Status Disposition: Transfer SNF Condition: Good Functional capacity at discharge: uses cane/walker Overall status at discharge: patient is progressing back to baseline - Discharge Instructions Follow Up With: Wilma Jacobs CNP [Advanced Practice Nurse] - 09/26/16 9:00 am Neisha Orellana CNP [Advanced Practice Nurse] - 10/25/16 10:00 am Lety Ibarra CNP [Primary Care Provider] - 11/27/16 9:00 am Additional Instructions: Discharge Instructions: Total Hip Replacement Please call [facility] ([phone]), your Primary Care Physician, or report to the Emergency Room if you have any of the following symptoms: Nausea, vomiting, fever greater that 101.5, swelling, chest pain, shortness of breath, increased pain/redness/drainage/odor for your incision site, numbness/ tingling, or any other concerning symptoms. ACTIVITY:Weight-bearing as tolerated for 8 weeks with hip dislocation precautions that physical therapy taught you. You may progress as tolerated under the guidance of your physical therapist. You do not need to sleep with a pillow between your legs. You can also seep on the operative side or on your stomach. MEDICATIONS: Upon discharge resume your home medications. Take all the medications as prescribed. Take a stool softener if taking narcotic pain medications. Stool softeners are only effective if you drink enough fluids. Drink 6-8 glass of water or fluids a day, unless this is not allowed for another health problem. Despite using stool softeners, if you haven't had a bowel movement in 3 days, please switch to a gentle laxative. Gentle laxatives are sold over the counter. You should have a bowel movement within 24 hours, if not call the office. You will be discharged from the hospital with a prescription for pain medication. You are encouraged to decrease the use of narcotic pain medication as tolerated. Should you require a refill, please call the office. [facility] prescribes narcotic pain medication for only 4-6 weeks after surgery. If you require pain medication beyond this time periord, you may be referred to your Primary Care Physician or to the Pain Clinic for further evaluation. Plan ahead for refills on pain medication as many narcotics either need to be picked up at the office or mailed. It is best to call 48-72 hours in advance of needing a prescription refill so you don't run out of medication. To help control the post-operative pain, you may take NSAIDs (Aleve,Advil, Motrin, ibuprofen, naprosyn) or Tylenol as prescribed on the bottle in addition to the pain medication. ANTICOAGULATION (blood thinners): Continue your Aspirin, Lovenox or Coumadin as prescribed to help prevent a blood clot in the leg or in the lungs. As long as your incision remains dry and you tolerate the NSAIDs (Aleve, Advil, Motrin, ibuprofen, naprosyn), it is OK to use the NSAIDS while you are taking your anticoagulation medication. Should your incision start to drain, stop the NSAID and contact our office. Common symptoms of blood clot in the legs include: localized pain, swelling, calf tenderness, redness or discoloration of the skin. Blood clot in the lung symptoms include: shortness of breath, rapid pulse, sweating, and chest pain that worsens with deep breathing, coughing up blood, lightheadedness, feelings of anxiety. If you experience any of these symptoms notify your physician immediately, go to the emergency room, or if having trouble breathing, call 911. WOUND CARE: Leave the dressing on for 7 days. You may change the dressing if it is saturated greater than 50%. You can shower but not a tub bath or submerge your incision in water. Wash your hands with antibacterial soap, rinse and dry prior to any wound care. If you have kassidy the visiting nurse or rehab facility can remove the stapes 10-14 days after surgery [address] steri-strips across the wound. Leave the steri-strips in place until they fall off on their won. You may let water from the shower run on top of the steri-stirips. If you do not have a visiting nurse or rehab facility, you will need to return to the office at 10-14 days for the kassidy to be removed. FOLLOW-UP: Please follow up with your surgeon in the orthopedic clinic in 6 weeks from the day of surgery. If you have kassidy that need to be removed, you will need to come back to the office in 10-14 days from the day of surgery. - Diet and Activity Activity: as per physical therapy, increase activity as tolerated Diet: diabetic diet, low salt diet Hospital course: Hospital presentation: Mr. Mao is a 71 year old male with past medical history of hypertension, diabetes, hyperlipidemia, gallstones, osteoarthritis. The patient states that he had a fall from a ladder today, was found to have a hip fracture and was transferred from [facility] to [facility] for further management and workup. He has been evaluated by the orthopedic surgery team and will be scheduled for the OR accordingly (Left Hip Open reduction and intramedullary nail fixation). Hospital course: Patient was admitted to the medical service. He was treated medically for pain. He did not require any further workup preop. On day 2 of hospitalization he had a left hip open reduction and intramedullary nail fixation. He tolerated the procedure well. Postop he had a non-complicated course and today he is able to participate in physical therapy and will be discharged to subacute rehabilitation. He has impaired mobility due to his recent hip fracture and therefore I will provide him with Lovenox for DVT prophylaxis to be continued for 7 days only and then reassessed by PCP. - Time Spent with Patient Total time spent providing and/or coordinating discharge services: Greater than 30 minutes (I have spent 40 minutes coordinating this discharge.) - Constitutional Vitals: Temp Pulse Resp BP Pulse Ox 98.6 F 91 16 122/63 93 09/14/16 06:41 09/14/16 06:41 09/14/16 06:41 09/14/16 06:41 09/14/16 06:41 General appearance: Present: cooperative, A&O X 3, pleasant, no acute distress - Respiratory Respiratory exam: Present: CTAB. Absent: accessory muscle use, rales, rhonchi, wheezes - Cardiovascular Cardiovascular exam: Present: RRR, +S1, +S2. Absent: diastolic murmur, gallop, rubs, systolic murmur - GI/Abdominal GI/Abdominal exam: Present: normal bowel sounds, soft, no peritoneal signs. Absent: distended, tenderness - Extremities Exam Extremities exam: Present: warm, radial pulses palpable and symetrical. Absent : calf tenderness, cyanotic, pedal edema - VTE Documentation of Mechanical Device: Venous foot pump, device
--- NOTE | 2016-09-14 10:42 | Physician Discharge Referral ---
ExtendedCare Referral Info Transfer To: SNF Provider in Charge after Transfer: PCP Institutional Level of Care: Skilled - Diagnosis (1) Hip fracture, left Status: Acute (2) Hypertension Status: Acute (3) DVT prophylaxis Status: Acute (4) Type 2 diabetes mellitus Status: Acute (5) Hypomagnesemia Status: Acute - Transfer Medications Home Medications: Allopurinol [Zyloprim] 300 mg PO DAILY 09/10/16 [History] Amlodipine Besylate 10 mg PO DAILY 09/10/16 [History] Aspirin Enteric Coated [Aspirin EC] 81 mg PO DAILY 09/10/16 [History] Hydrochlorothiazide [Microzide] 12.5 mg PO DAILY 09/10/16 [History] Metformin HCl [Metformin HCl ER] 500 mg PO DAILY 09/10/16 [History] [place]-3 Fatty Acids [Fish Oil Concentrate] 1,000 mg PO DAILY 09/10/16 [History] Prazosin HCl [Minipress] 5 mg PO BID 09/10/16 [History] Allergies/Adverse Reactions: Allergies No Known Allergies Allergy (Verified 08/21/16 20:51) - Respiratory Orders Smoking Cessation: Smoking cessation has been advised. For more information, call the [place] Tobacco Quit Line at 7-491-NXJI-NOW. - Advance Directives Living Will: No Power of Peoplesoft Consultant: Yes Code Status: Full Code - Mobility Orders Ambulate - Rehabiliation Orders Rehab Potential: Good - Diet Orders No Added Salt (STUART), No Concentrated Sweets CERTIFICATION: I certify that the transfer of the above named patient to an Extended Care Facility is necessary for the continuing treatment of the diagnosis listed. The above information is true and accurate reflection of patient's current condition. Confidential - Redisclosure prohibited without a patient's written consent.
--- NOTE | 2016-09-14 10:45 | Discharge Summary ---
Date of Encounter: 09/14/16 Time of Encounter: 10:43 - Discharge Diagnosis (1) Hip fracture, left Priority: Primary Status: Acute Qualifiers: Encounter type: initial encounter Fracture type: closed Qualified Code(s) : S72.002A - Fracture of unspecified part of neck of left femur, initial encounter for closed fracture (2) Hypertension Priority: Secondary Status: Acute Qualifiers: Hypertension type: essential hypertension Qualified Code(s): I10 - Essential (primary) hypertension (3) DVT prophylaxis Priority: Secondary Status: Acute (4) Type 2 diabetes mellitus Priority: Secondary Status: Acute Qualifiers: Diabetes mellitus complication status: without complication Diabetes mellitus skilled nursing insulin use: without skilled nursing use Qualified Code(s): E11.9 - Type 2 diabetes mellitus without complications (5) Hypomagnesemia Priority: Secondary Status: Acute - Discharge Medications Prescriptions: OxyCODONE Immed Rel [Roxicodone 5 MG] 5 mg PO Q6HR PRN #30 tablet PRN Reason: Moderate Pain (4-6) Home Medications: Allopurinol [Zyloprim] 300 mg PO DAILY 09/10/16 [History] Amlodipine Besylate 10 mg PO DAILY 09/10/16 [History] Aspirin Enteric Coated [Aspirin EC] 81 mg PO DAILY 09/10/16 [History] Hydrochlorothiazide [Microzide] 12.5 mg PO DAILY 09/10/16 [History] Metformin HCl [Metformin HCl ER] 500 mg PO DAILY 09/10/16 [History] [place]-3 Fatty Acids [Fish Oil Concentrate] 1,000 mg PO DAILY 09/10/16 [History] Prazosin HCl [Minipress] 5 mg PO BID 09/10/16 [History] Docusate [Colace] 100 mg PO BID PRN #0 capsule 09/14/16 [Rx] Enoxaparin [Lovenox] 30 mg SQ Q12HCO #14 syringe 09/14/16 [Rx] OxyCODONE Immed Rel [Roxicodone 5 MG] 5 mg PO Q6HR PRN #30 tablet 09/14/16 [Rx] Allergies/Adverse Reactions: Allergies No Known Allergies Allergy (Verified 08/21/16 20:51) Date of admission: 09/10/16 21:23 Primary care physician: Lety Ibarra CNP Consults: 09/12/16 17:11 Consult to Occupational Therapy [CONS] Routine Comment: Evaluate, develop and implement POC Consult to Orthopedic Navigator [CONS] [CONS] Routine Consult to Physical Therapy [CONS] Routine Comment: Evaluate, develop and implement POC RT Post Op Consult [CONS] Routine - Patient Status Disposition: Transfer SNF Condition: Good - Discharge Instructions Follow Up With: Wilma Jacobs CNP [Advanced Practice Nurse] - 09/26/16 9:00 am Neisha Orellana CNP [Advanced Practice Nurse] - 10/25/16 10:00 am Lety Ibarra CNP [Primary Care Provider] - 11/27/16 9:00 am Additional Instructions: Discharge Instructions: Total Hip Replacement Please call [facility] ([phone]), your Primary Care Physician, or report to the Emergency Room if you have any of the following symptoms: Nausea, vomiting, fever greater that 101.5, swelling, chest pain, shortness of breath, increased pain/redness/drainage/odor for your incision site, numbness/ tingling, or any other concerning symptoms. ACTIVITY:Weight-bearing as tolerated for 8 weeks with hip dislocation precautions that physical therapy taught you. You may progress as tolerated under the guidance of your physical therapist. You do not need to sleep with a pillow between your legs. You can also seep on the operative side or on your stomach. MEDICATIONS: Upon discharge resume your home medications. Take all the medications as prescribed. Take a stool softener if taking narcotic pain medications. Stool softeners are only effective if you drink enough fluids. Drink 6-8 glass of water or fluids a day, unless this is not allowed for another health problem. Despite using stool softeners, if you haven't had a bowel movement in 3 days, please switch to a gentle laxative. Gentle laxatives are sold over the counter. You should have a bowel movement within 24 hours, if not call the office. You will be discharged from the hospital with a prescription for pain medication. You are encouraged to decrease the use of narcotic pain medication as tolerated. Should you require a refill, please call the office. [facility] prescribes narcotic pain medication for only 4-6 weeks after surgery. If you require pain medication beyond this time periord, you may be referred to your Primary Care Physician or to the Pain Clinic for further evaluation. Plan ahead for refills on pain medication as many narcotics either need to be picked up at the office or mailed. It is best to call 48-72 hours in advance of needing a prescription refill so you don't run out of medication. To help control the post-operative pain, you may take NSAIDs (Aleve,Advil, Motrin, ibuprofen, naprosyn) or Tylenol as prescribed on the bottle in addition to the pain medication. ANTICOAGULATION (blood thinners): Continue your Aspirin, Lovenox or Coumadin as prescribed to help prevent a blood clot in the leg or in the lungs. As long as your incision remains dry and you tolerate the NSAIDs (Aleve, Advil, Motrin, ibuprofen, naprosyn), it is OK to use the NSAIDS while you are taking your anticoagulation medication. Should your incision start to drain, stop the NSAID and contact our office. Common symptoms of blood clot in the legs include: localized pain, swelling, calf tenderness, redness or discoloration of the skin. Blood clot in the lung symptoms include: shortness of breath, rapid pulse, sweating, and chest pain that worsens with deep breathing, coughing up blood, lightheadedness, feelings of anxiety. If you experience any of these symptoms notify your physician immediately, go to the emergency room, or if having trouble breathing, call 911. WOUND CARE: Leave the dressing on for 7 days. You may change the dressing if it is saturated greater than 50%. You can shower but not a tub bath or submerge your incision in water. Wash your hands with antibacterial soap, rinse and dry prior to any wound care. If you have kassidy the visiting nurse or rehab facility can remove the stapes 10-14 days after surgery and place steri-strips across the wound. Leave the steri-strips in place until they fall off on their won. You may let water from the shower run on top of the steri-stirips. If you do not have a visiting nurse or rehab facility, you will need to return to the office at 10-14 days for the kassidy to be removed. FOLLOW-UP: Please follow up with your surgeon in the orthopedic clinic in 6 weeks from the day of surgery. If you have kassidy that need to be removed, you will need to come back to the office in 10-14 days from the day of surgery. Interval History: This discharge summary is an addendum containing the updated discharge medication list. For hospital course and discharge instructions please refer to the previously cemented discharge summary. - Time Spent with Patient Total time spent providing and/or coordinating discharge services: - Constitutional Vitals: Temp Pulse Resp BP Pulse Ox 98.6 F 91 16 122/63 93 09/14/16 06:41 09/14/16 06:41 09/14/16 06:41 09/14/16 06:41 09/14/16 06:41 General appearance: Present: cooperative, A&O X 3, pleasant, no acute distress - VTE Documentation of Mechanical Device: Venous foot pump, device
[2016-09-14 11:17] VITALS: BP 126/64
== END 2016-09-14 12:27 | DRG 482 ==
LOC: 3NENU → SUATTDRO 21:23
PROVIDERS: ADMIT Internal Medicine; ATTEND Internal Medicine

== ENCOUNTER 2016-12-08 05:46 | Inpatient (IN) ==
[2016-12-08] MEDS ORDERED: Ondansetron 4 MG/2 ML VIAL IVP ONE (05:54)
[2016-12-08] MEDS ORDERED: *HR* HYDROmorphone (PF) 1 MG/ML SYRINGE IVP ONE ×5 (05:54→09:58)
[2016-12-08] MEDS ORDERED: 0.9 % Sodium Chloride 1,000 ML IVC ONE (05:54)
--- NOTE | 2016-12-08 05:57 | Emergency Department Note ---
START Narrative - START START: I examined this patient and my medical decision-making was reviewed with the ARCHERY INSTRUCTOR/PA/Advanced Practice Nurse/Resident Physician. I agree with the documented findings, disposition and treatment plan as described except to the extent set forth below. ED attending note: Patient seen with emergency medicine resident Dr. Quijano. Please see a copy of his note for details of the H&P, evaluation, management and disposition of this patient. We independently had [id number] contact with the patient Briefly: 71-year-old male by wheelchair accompanied by with acute right upper quadrant pain since 4:30 this morning. He is 2 days postoperative laparoscopic cholecystectomy performed by the surgeon Dr. Gonzales. Patient woke up at about 4 4:30 this morning with right upper quadrant pain and nausea. No vomiting fever chills shortness of breath or chest pain. Surgical wounds from scopes are in place and intact without signs of bleeding swelling erythema warmth or since. Patient will get parenteral analgesics and antiemetics noncontrast abdominal pelvic CT scan and screening labs. Disposition pending.
--- NOTE | 2016-12-08 06:09 | Emergency Department Note ---
Disposition Clinical Impression: Pneumatosis of intestines Abdominal pain Qualifiers: Abdominal location: right upper quadrant Qualified Code(s): R10.11 - Right upper quadrant pain Disposition: Still a Patient Condition: Undetermined Referrals: Unassigned,Provider [Non-Partnered Physician] - Forms: Work/School Release, ED Satisfaction Letter Time of Disposition: 07:01 Abdominal Pain HPI - General Chief Complaint: ED Abdominal Pain Stated Complaint: Pain s/p cholecystectomy Time Seen by Provider: 12/08/16 05:53 Source: patient Mode of arrival: wheelchair Limitations: no limitations Nursing Notes Reviewed: Yes Vital Signs Reviewed: Yes - History of Present Illness HPI Narrative: 71-year-old male with history of COPD arrives to days postop from cholecystectomy performed by Dr. Jones. The patient states that at 440 this morning he began complaining of epigastric and right upper quadrant pain. The patient states it is a 9 out of 10. Patient has associated nausea without any vomiting, fevers but is chilled. The patient denies any focalized weakness, chest pain, difficulty breathing. He decided to come into the emergency department for evaluation after 30 minutes because the pain continued to worsen. The patient ate dinner last night without difficulty and has been having normal bowel movements since surgery. The patient was brought in by his arrives and wheelchair complaining of severe pain. The patient is writhing in pain on the cot in the emergency Department room upon physical exam. He is able to answer questions appropriately. No bowel sounds on auscultation. Pt Subjective Complaint: abdominal pain Onset (ago): hour(s) (1.5) Consistency: constant, Worsening Location: RUQ, epigastric Pain Severity: severe Pain Scale: 10 Quality: stabbing Radiation: none Migration to: no migration Improves with: nothing Worsens with: nothing Context: recent surgery/procedure Associated symptoms: Reports: nausea Treatments prior to arrival: none - Related Data Home Medications Medication Instructions Recorded Confirmed Allopurinol [Zyloprim] 300 mg PO DAILY 09/10/16 12/06/16 Amlodipine Besylate 10 mg PO DAILY 09/10/16 12/06/16 Aspirin Enteric Coated [Aspirin EC] 81 mg PO DAILY 09/10/16 12/06/16 Hydrochlorothiazide [Microzide] 12.5 mg PO DAILY 09/10/16 12/06/16 Metformin HCl [Metformin HCl ER] 500 mg PO DAILY 09/10/16 12/06/16 Prazosin HCl [Minipress] 5 mg PO BID 09/10/16 12/06/16 Acetaminophen [Tylenol] 1,000 mg PO Q6HR PRN 12/06/16 12/06/16 OxyCODONE/APAP 5/325 [Percocet 1 each PO Q6HR PRN 12/06/16 12/06/16 5/325 MG] Previous Rx's Medication Instructions Recorded OxyCODONE/APAP 10/325 [Percocet 1 each PO Q6HR PRN #24 tablet 12/06/16 10/325 MG] Allergies Allergy/AdvReac Type Severity Reaction Status Date / Time No Known Allergies Allergy Verified 12/06/16 07:08 All systems ED: reviewed and negative except as stated. Constitutional: Reports: chills. Denies: fever, weakness Cardiovascular: Denies: chest pain, palpitations, dyspnea on exertion, edema, syncope Respiratory: Denies: cough, dyspnea, wheezes, hemoptysis, stridor Gastrointestinal: Reports: abdominal pain, nausea. Denies: vomiting, diarrhea, constipation, hematemesis, melena, hematochezia Genitourinary: Denies: urgency, dysuria, frequency, hematuria Musculoskeletal: Denies: back pain, neck pain, arthralgia, myalgia Integumentary: Reports: other (Surgical wounds intact). Denies: rash, abrasion , lesions Neurological: Denies: headache, weakness, numbness, paresthesias, confusion, abnormal gait, vertigo Abdominal Pain PMH - Past Medical History Medical history: Reports: arthritis, diabetes, hyperlipidemia, hypertension Male Surgical History: Reports: cholecystectomy (2 days ago), other Psychiatric history: Reports: no psych history - Social History Smoking status: Never smoker Alcohol use: Reports: none Drug use: Reports: none Physical Exam - General Limitations: no limitations General appearance: alert, in distress (Due to pain) - Head Head exam: atraumatic, normocephalic, normal inspection - Chest Chest inspection: Present: normal inspection, symmetric chest wall rise - Respiratory Respiratory exam: Present: normal lung sounds bilaterally - Cardiovascular Cardiovascular exam: Present: regular rate, normal rhythm, normal heart sounds - Abdominal Exam Abdominal exam: Present: tenderness, distention, guarding, rigidity, hypoactive bowel sounds, other (Surgical wounds intact). Absent: rebound - Extremities Exam Extremities exam: Present: normal inspection, full ROM. Absent: tenderness, pedal edema - Neurological Exam Neurological exam: Present: alert, oriented X3 - Skin Skin exam: Present: warm, dry, intact, normal color Course Vital Signs Temperature 97.8 F 12/08/16 05:47 Pulse Rate 98 12/08/16 05:47 Respiratory Rate 20 12/08/16 05:47 Blood Pressure 126/76 12/08/16 05:47 O2 Sat by Pulse Oximetry 89 12/08/16 05:47 Temperature 97.8 F 12/08/16 05:47 Pulse Rate 98 12/08/16 05:47 Respiratory Rate 20 12/08/16 05:47 Blood Pressure 126/76 12/08/16 05:47 O2 Sat by Pulse Oximetry 89 12/08/16 05:47 Oxygen Delivery Oxygen Delivery Room Air Abdominal Pain - MDM Narrative Medical decision making narrative: Patient's lab reveal a leukocytosis of 19.5. This is much higher than when he was first diagnosed with cholecystitis. The patient has practically absent bowel sounds. On CT scan demonstrates expected findings in addition to choledocholithiasis and jejunal pneumatosis. We will sign this patient out to the day team for further care and consult. - Lab Data Lab results reviewed: Yes I reviewed the patient's lab results. Result diagrams: 12/08/16 06:00 12/08/16 06:00 Lab Results 12/08/16 12/08/16 12/08/16 Range/Units 06:00 06:00 06:27 WBC 19.5 H (4.3-11.1) K/mcL RBC 4.80 (4.19-5.50) M/mcL Hgb 14.2 (12.9-16.9) g/dL Hct 42.0 (37.5-50.1) % MCV 87.5 (83.0-100.0) fL MCH 29.6 (28.0-33.3) pg MCHC 33.8 (31.6-35.5) g/dL RDW 14.2 (11.5-14.5) % Plt Count 202 (140-400) K/mcL MPV 10.2 (9.4-12.4) fL Immature Gran % 0.7 (0-4) % Seg Neutrophils % 84.7 % Lymphocytes % 8.6 % Monocytes % 5.7 % Eosinophils % 0.1 % Basophils % 0.2 % Neutrophils # 16.5 H (1.6-8.9) K/mcL Lymphocytes # 1.7 (0.6-4.6) K/mcL Monocytes # 1.1 (0.0-1.3) K/mcL Eosinophils # 0.0 (0.0-0.6) K/mcL Basophils # 0.0 (0.0-0.2) K/mcL Sodium 137 (136-145) mEq/L Potassium 3.9 (3.5-4.5) mEq/L Chloride 99 (98-109) mEq/L Carbon Dioxide 26 (19-29) mEq/L BUN 24 (8-26) mg/dL Creatinine 1.22 (0.72-1.25) mg/dL Est GFR ( Amer) > 60 (> 60) Est GFR (Non-Af Amer) 59 L (> 60) BUN/Creatinine Ratio 20 (6-26) Glucose 174 H (70-99) mg/dL Calculated Osmolality 292 (280-300) Lactic Acid 2.0 (0.5-2.2) mmol/L Calcium 9.7 (8.6-10.8) mg/dL Total Bilirubin 1.1 (0.2-1.2) mg/dL AST 64 H (5-34) Units/L ALT 123 H (0-55) Units/L Alkaline Phosphatase 115 (38-126) Units/L Serum Total Protein 7.6 (6.0-8.3) g/dL Albumin 3.8 (3.5-5.0) g/dL Globulin 3.8 H (2.4-3.5) g/dL Albumin/Globulin Ratio 1.0 L (1.1-2.2) - Radiology Data Radiology results reviewed: Yes I reviewed the patient's radiology results. - EKG Data EKG attestation: Yes I reviewed and interpreted this EKG. EKG results narrative: Heart rate 94 bpm. WI interval 187 ms. QTc 385 ms. Normal axis. Normal sinus rhythm. No ST elevation or ST depression noted. EKG from 11/26/2016 simmer in appearance. No acute changes noted.
[2016-12-08 06:16] LABS: Basophils % 0.2 %; Eosinophils % 0.1 %; Hemoglobin 14.2 g/dL (12.9-16.9); Immature Granulocytes % 0.7 % (0-4); Lymphocytes # 1.7 K/mcL (0.6-4.6); Lymphocytes % 8.6 %; Mean Corpuscular HGB Conc 33.8 g/dL (31.6-35.5); Mean Corpuscular Hemoglobin 29.6 pg (28.0-33.3); Mean Corpuscular Volume 87.5 fL (83.0-100.0); Mean Platelet Volume 10.2 fL (9.4-12.4); Monocytes # 1.1 K/mcL (0.0-1.3); Monocytes % 5.7 %; Neutrophils # 16.5 K/mcL (1.6-8.9); Platelet Count 202 K/mcL (140-400); Red Cell Distribution Width 14.2 % (11.5-14.5); Segmented Neutrophils % 84.7 %
[2016-12-08 06:31] LABS: Alanine Aminotransferase 123 Units/L (0-55); Albumin 3.8 g/dL (3.5-5.0); Alkaline Phosphatase 115 Units/L (38-126); Aspartate Amino Transferase 64 Units/L (5-34); BUN/Creatinine Ratio 20 (6-26); Bilirubin,Total 1.1 mg/dL (0.2-1.2); Blood Urea Nitrogen 24 mg/dL (8-26); Calcium 9.7 mg/dL (8.6-10.8); Carbon Dioxide 26 mEq/L (19-29); Chloride 99 mEq/L (98-109); Globulin 3.8 g/dL (2.4-3.5); Glucose 174 mg/dL (70-99); Osmolality,Calculated 292 (280-300); Potassium 3.9 mEq/L (3.5-4.5); Sodium 137 mEq/L (136-145); Total Protein 7.6 g/dL (6.0-8.3); eGFR For African Americans > 60 (> 60); eGFR For Non-African Americans 59 (> 60)
[2016-12-08] MEDS ORDERED: Piperacillin/Tazobactam 3.375 GM in D5% in Water (Mini-Bag+) 100 ML IVPB ONE (07:05)
--- NOTE | 2016-12-08 07:07 | Emergency Department Note ---
Disposition Clinical Impression: Pneumatosis of intestines Abdominal pain Qualifiers: Abdominal location: right upper quadrant Qualified Code(s): R10.11 - Right upper quadrant pain Disposition: Admitted As Inpatient Condition: Good Referrals: Unassigned,Provider [Non-Partnered Physician] - Forms: ED Satisfaction Letter, Work/School Release Time of Disposition: 07:07 General Adult HPI - General Chief complaint: ED Abdominal Pain Stated complaint: Pain s/p cholecystectomy Time Seen by Provider: 12/08/16 05:53 Source: patient Mode of arrival: wheelchair Limitations: no limitations - History of Present Illness Pain Scale: 10 - Related Data Home Medications Medication Instructions Recorded Confirmed Allopurinol [Zyloprim] 300 mg PO DAILY 09/10/16 12/06/16 Amlodipine Besylate 10 mg PO DAILY 09/10/16 12/06/16 Aspirin Enteric Coated [Aspirin EC] 81 mg PO DAILY 09/10/16 12/06/16 Hydrochlorothiazide [Microzide] 12.5 mg PO DAILY 09/10/16 12/06/16 Metformin HCl [Metformin HCl ER] 500 mg PO DAILY 09/10/16 12/06/16 Prazosin HCl [Minipress] 5 mg PO BID 09/10/16 12/06/16 Acetaminophen [Tylenol] 1,000 mg PO Q6HR PRN 12/06/16 12/06/16 OxyCODONE/APAP 5/325 [Percocet 1 each PO Q6HR PRN 12/06/16 12/06/16 5/325 MG] Previous Rx's Medication Instructions Recorded OxyCODONE/APAP 10/325 [Percocet 1 each PO Q6HR PRN #24 tablet 12/06/16 10/325 MG] Allergies Allergy/AdvReac Type Severity Reaction Status Date / Time No Known Allergies Allergy Verified 12/06/16 07:08 Constitutional: Reports: chills. Denies: fever, weakness Cardiovascular: Denies: chest pain, palpitations, dyspnea on exertion, edema, syncope Respiratory: Denies: cough, dyspnea, wheezes, hemoptysis, stridor Gastrointestinal: Reports: abdominal pain, nausea. Denies: vomiting, diarrhea, constipation, hematemesis, melena, hematochezia Genitourinary: Denies: urgency, dysuria, frequency, hematuria Musculoskeletal: Denies: back pain, neck pain, arthralgia, myalgia Integumentary: Reports: other (Surgical wounds intact). Denies: rash, abrasion , lesions Neurological: Denies: headache, weakness, numbness, paresthesias, confusion, abnormal gait, vertigo Past Medical History - Past Medical History Medical history: Reports: arthritis, diabetes, hyperlipidemia, hypertension Psychiatric history: Reports: no psych history - Social History Smoking Status: Never smoker Smokeless Tobacco Status: No Alcohol use: Reports: none Drug use: Reports: none Physical Exam - General Limitations: no limitations General appearance: alert, in distress (Due to pain) Course Vital Signs Temperature 97.8 F 12/08/16 05:47 Pulse Rate 98 12/08/16 05:47 Respiratory Rate 20 12/08/16 05:47 Blood Pressure 126/76 12/08/16 05:47 O2 Sat by Pulse Oximetry 89 12/08/16 05:47 Temperature 97.8 F 12/08/16 05:47 Pulse Rate 98 12/08/16 05:47 Respiratory Rate 20 12/08/16 05:47 Blood Pressure 126/76 12/08/16 05:47 O2 Sat by Pulse Oximetry 89 12/08/16 05:47 Oxygen Delivery Oxygen Delivery Room Air Medical Decision Making - Lab Data Lab results reviewed: Yes I reviewed the patient's lab results. Result diagrams: 12/08/16 06:00 12/08/16 06:00 Lab Results 12/08/16 12/08/16 12/08/16 Range/Units 06:00 06:00 06:27 WBC 19.5 H (4.3-11.1) K/mcL RBC 4.80 (4.19-5.50) M/mcL Hgb 14.2 (12.9-16.9) g/dL Hct 42.0 (37.5-50.1) % MCV 87.5 (83.0-100.0) fL MCH 29.6 (28.0-33.3) pg MCHC 33.8 (31.6-35.5) g/dL RDW 14.2 (11.5-14.5) % Plt Count 202 (140-400) K/mcL MPV 10.2 (9.4-12.4) fL Immature Gran % 0.7 (0-4) % Seg Neutrophils % 84.7 % Lymphocytes % 8.6 % Monocytes % 5.7 % Eosinophils % 0.1 % Basophils % 0.2 % Neutrophils # 16.5 H (1.6-8.9) K/mcL Lymphocytes # 1.7 (0.6-4.6) K/mcL Monocytes # 1.1 (0.0-1.3) K/mcL Eosinophils # 0.0 (0.0-0.6) K/mcL Basophils # 0.0 (0.0-0.2) K/mcL Sodium 137 (136-145) mEq/L Potassium 3.9 (3.5-4.5) mEq/L Chloride 99 (98-109) mEq/L Carbon Dioxide 26 (19-29) mEq/L BUN 24 (8-26) mg/dL Creatinine 1.22 (0.72-1.25) mg/dL Est GFR ( Amer) > 60 (> 60) Est GFR (Non-Af Amer) 59 L (> 60) BUN/Creatinine Ratio 20 (6-26) Glucose 174 H (70-99) mg/dL Calculated Osmolality 292 (280-300) Lactic Acid 2.0 (0.5-2.2) mmol/L Calcium 9.7 (8.6-10.8) mg/dL Total Bilirubin 1.1 (0.2-1.2) mg/dL AST 64 H (5-34) Units/L ALT 123 H (0-55) Units/L Alkaline Phosphatase 115 (38-126) Units/L Serum Total Protein 7.6 (6.0-8.3) g/dL Albumin 3.8 (3.5-5.0) g/dL Globulin 3.8 H (2.4-3.5) g/dL Albumin/Globulin Ratio 1.0 L (1.1-2.2) - Radiology Data Radiology results reviewed: Yes I reviewed the patient's radiology results. Attestation Statement - Attestation Attestation: Care assumed from Dr. Castro at 7 AM pending surgical consultation and reevaluation. Patient uncomfortable on exam. Labs indicate a leukocytosis of 19,000. CT report indicates suspected pneumatosis of the jejunum. Case discussed by me with who recommends IV Zosyn and admission to his service
[2016-12-08] MEDS ORDERED: *HR* FentaNYL (PF) 100 MCG/2 ML VIAL IVP ONE (08:26)
[2016-12-08] MEDS ORDERED: *HR* Dextrose 50 % in Water (Syg) 50 ML SYRINGE IVP PRN (10:43)
[2016-12-08] MEDS ORDERED: Dextrose Gel 15 GM PO PRN ×2 (10:43)
[2016-12-08] MEDS ORDERED: D5% in Water 1,000 ML IVC PRN (10:43)
--- NOTE | 2016-12-08 10:50 | General Surg History&Physical ---
Date of Encounter: 12/08/16 Time of Encounter: 10:45 Assessment and Plan (1) Ascending cholangitis Current Visit: Yes Status: Acute The assessment and plan as outlined above was discussed with the patient and/or family members who expressed understanding and agreement. All questions were answered. Plan antibiotic therapy and ERCP if he does not respond History of Present Illness Chief complaint: abdominal pain HPI: Mr. Mao is a 71 year old male who recently underwent laparoscopic cholecystectomy. non-obstructing choledocholithiasis was identified. The patient was scheduled to see gastroenterology for ERCP, but developed abdominal pain and was evaluated in the emergency department. He was found to have leukocytosis and choledocholithiasis. Incidenteal jejunal pneumotosis was identified by the radiologist, but I failed to identify this on my interpretation of the CT. No gallbladder fossa fluid collection was noted. The patient is admtted with the presumptive diagnosis of ascending cholangitis Past Med Surg Social Fam HX - Past Medical History Medical history: arthritis, diabetes, hyperlipidemia, hypertension Psychiatric history: no psych history - Past Surgical History Surgical History: cholecystectomy (laparoscopic cholecystectomy last week with non-obstructing choledocholithiasis noted) - Social History Smoking Status: Never smoker Smokeless Tobacco Status: No Alcohol use: none Drug use: none - Family History Father Living Status: Hx Family Cardiac Disorders: Yes (MT) Hx Family Endocrine Disorder: Yes (DM) Medications and Allergies Allopurinol [Zyloprim] 300 mg PO DAILY 09/10/16 [History] Amlodipine Besylate 10 mg PO DAILY 09/10/16 [History] Aspirin Enteric Coated [Aspirin EC] 81 mg PO DAILY 09/10/16 [History] Hydrochlorothiazide [Microzide] 12.5 mg PO DAILY 09/10/16 [History] Metformin HCl [Metformin HCl ER] 500 mg PO DAILY 09/10/16 [History] Prazosin HCl [Minipress] 5 mg PO BID 09/10/16 [History] Acetaminophen [Tylenol] 1,000 mg PO Q6HR PRN 12/06/16 [History] OxyCODONE/APAP 10/325 [Percocet 10/325 MG] 1 tab PO Q6HR PRN 12/08/16 [History] Allergies No Known Allergies Allergy (Verified 12/06/16 07:08) Review of Systems All systems PM: A 10-system review of systems was performed and is negative for pertinent findings except as documented above in the HPI. General Surgery Exam Initial Vital Signs Temp Pulse Resp BP Pulse Ox 97.8 F 98 20 126/76 89 12/08/16 05:47 12/08/16 05:47 12/08/16 05:47 12/08/16 05:47 12/08/16 05:47 - General physical appearance well developed, well nourished, moderate pain - Respiratory normal expansion, normal respiratory effort, clear to percussion, clear to auscultation - Cardiovascular Cardiovascular exam: Present: RRR, 15, 16 - Abdomen Abdomen general surgery: Present: bowel sounds present, tender Abdominal Tenderness: Present: diffusely - Incision Incision: Present: clean and dry - Neurologic Present: CN 2-12 grossly intact, normal coordination, normal sensation - Psychiatric Psychiatric general surgery: Present: appropriate, oriented to person, oriented to place, oriented to time, speech is normal, memory intact Results - Labs 12/08/16 06:00 12/08/16 06:00 Abnormal lab results WBC 19.5 K/mcL (4.3-11.1) H 12/08/16 06:00 Neutrophils # 16.5 K/mcL (1.6-8.9) H 12/08/16 06:00 Est GFR (Non-Af Amer) 59 (> 60) L 12/08/16 06:00 Glucose 174 mg/dL (70-99) H 12/08/16 06:00 AST 64 Units/L (5-34) H 12/08/16 06:00 ALT 123 Units/L (0-55) H 12/08/16 06:00 Globulin 3.8 g/dL (2.4-3.5) H 12/08/16 06:00 Albumin/Globulin Ratio 1.0 (1.1-2.2) L 12/08/16 06:00 All other labs normal. - Imaging CT scan - abdomen: image reviewed (I personally reviewed the CAT scan of the abdomen. No fluid collections, I was unable to identify the pneumotosis reported in the jejunum. Choledocholithiasis noted. No obstruction)
[2016-12-08] MEDS: 0.9 % Sodium Chloride 1,000 ML IVC SCH ×2 (11:01→19:58)
[2016-12-08] MEDS: *HR* HYDROmorphone (PF) 1 MG/ML SYRINGE IVP PRN ×9 (11:02→23:25)
[2016-12-08] MEDS: Piperacillin/Tazobactam 3.375 GM in D5% in Water (Mini-Bag+) 100 ML IVPB SCH ×2 (15:37→23:24)
[2016-12-09] MEDS: *HR* HYDROmorphone (PF) 1 MG/ML SYRINGE IVP PRN ×9 (02:44→20:26)
[2016-12-09 05:09] LABS: Hematocrit 41.5 % (37.5-50.1); Hemoglobin 13.7 g/dL (12.9-16.9); Mean Corpuscular Hemoglobin 29.5 pg (28.0-33.3); Mean Corpuscular Volume 89.4 fL (83.0-100.0); Mean Platelet Volume 10.4 fL (9.4-12.4); Platelet Count 186 K/mcL (140-400); Red Blood Count 4.64 M/mcL (4.19-5.50); Red Cell Distribution Width 14.7 % (11.5-14.5)
[2016-12-09 05:22] LABS: Albumin/Globulin Ratio 0.8 (1.1-2.2); Bilirubin,Direct 0.6 mg/dL (0.0-0.5); Bilirubin,Indirect 0.7 mg/dL (0.0-1.2); Bilirubin,Total 1.3 mg/dL (0.2-1.2); Globulin 3.7 g/dL (2.4-3.5); Potassium 4.7 mEq/L (3.5-4.5); Total Protein 6.7 g/dL (6.0-8.3)
[2016-12-09] MEDS: Piperacillin/Tazobactam 3.375 GM in D5% in Water (Mini-Bag+) 100 ML IVPB SCH ×2 (07:36→16:15)
[2016-12-09] MEDS: *HR* Metformin 500 MG TABLET PO SCH (07:36)
[2016-12-09] MEDS: NORVASC PO SCH (07:37)
[2016-12-09] MEDS: 0.9 % Sodium Chloride 1,000 ML IVC SCH ×2 (08:17→20:20)
--- NOTE | 2016-12-09 09:36 | General Surgery Progress Note ---
Date of Encounter: 12/09/16 Time of Encounter: 08:20 - Assessment and Plan (1) Ascending cholangitis Current Visit: Yes Status: Acute The patient had elevation of his white blood cell count today. The bilirubin has gone up to 1.3. I have ordered a hepatobiliary scan. This will tell me whether or not there is drainage into the duodenum and whether or not there is no obstruction or leak and biliary system. He may require ERCP. Further therapy will be based on these findings. Subjective Narrative: The patient continues to have abdominal pain. His leukocytosis is worse at 21, 900. His bilirubin is slightly elevated at 1.3. I am concerned that he has obstructed his common bile duct with choledocholithiasis. This may have initiated higher pressure and a biliary leak. We will get a hepatobiliary scan today. This will tell me if there is any drainage of bile into the duodenum or any obstruction of the common bile duct. We will continue antibiotic therapy today. He may require ERCP. Further therapy based on findings of hepatobiliary testing. Objective Vital Signs - Last 8 Hours Temp Pulse Resp BP Pulse Ox 12/09/16 07:01 98.1 F 106 19 133/80 94 12/09/16 06:45 92 12/09/16 04:50 98.1 F 108 20 121/71 92 Intake and Output 12/08/16 12/09/16 12/09/16 23:59 07:59 15:59 Intake Total 678 / 678 300 / 300 0 / 0 Output Total 0 / 0 300 / 300 Balance 678 / 678 0 / 0 0 / 0 Intake: IV Fluids 678 / 678 300 / 300 0.9 % Sodium Chloride 1, 578 / 578 200 / 200 000 ML @ 100 mls/hr IVC . Q10H [facility] Rx#:[id number] Zosyn 3.375 GM In 100 / 100 100 / 100 Dextrose 5% (Minibag+) 100 ML 100 ML @ 25 mls/hr IVPB Q8HR [facility] Rx#: [id number] Oral 0 / 0 0 / 0 0 / 0 Output: Urine 0 / 0 300 / 300 Other: Meal NPO NPO Weight 84.7 kg Blood Glucose* 156 150 Patient Weight 12/09/16 23:59 Weight 84.7 kg - General physical appearance moderate pain - Respiratory normal expansion, normal respiratory effort, clear to percussion, clear to auscultation - Cardiovascular Cardiovascular exam: Present: RRR, no murmurs/rubs/gallops - Abdomen Abdomen: Present: tender, guarding Abdominal Tenderness: diffusely - Incision Incision: Present: clean and dry - Neurologic normal coordination, normal sensation - Psychiatric oriented to time, oriented to person, oriented to place, speech is normal, memory intact - Labs 12/09/16 03:45 12/09/16 03:45 Diabetes panel 12/09/16 Range/Units 03:45 Sodium 139 (136-145) mEq/L Potassium 4.7 H (3.5-4.5) mEq/L Chloride 102 (98-109) mEq/L Carbon Dioxide 26 (19-29) mEq/L BUN 36 H D (8-26) mg/dL Creatinine 1.84 H D (0.72-1.25) mg/dL Glucose 153 H (70-99) mg/dL Calcium 9.0 (8.6-10.8) mg/dL AST 25 (5-34) Units/L ALT 71 H (0-55) Units/L Alkaline Phosphatase 91 (38-126) Units/L Albumin 3.0 L D (3.5-5.0) g/dL Calcium panel 12/09/16 Range/Units 03:45 Calcium 9.0 (8.6-10.8) mg/dL Albumin 3.0 L D (3.5-5.0) g/dL Pituitary panel 12/09/16 Range/Units 03:45 Sodium 139 (136-145) mEq/L Potassium 4.7 H (3.5-4.5) mEq/L Chloride 102 (98-109) mEq/L Carbon Dioxide 26 (19-29) mEq/L BUN 36 H D (8-26) mg/dL Creatinine 1.84 H D (0.72-1.25) mg/dL Glucose 153 H (70-99) mg/dL Calcium 9.0 (8.6-10.8) mg/dL Adrenal panel 12/09/16 Range/Units 03:45 Sodium 139 (136-145) mEq/L Potassium 4.7 H (3.5-4.5) mEq/L Chloride 102 (98-109) mEq/L Carbon Dioxide 26 (19-29) mEq/L BUN 36 H D (8-26) mg/dL Creatinine 1.84 H D (0.72-1.25) mg/dL Glucose 153 H (70-99) mg/dL Calcium 9.0 (8.6-10.8) mg/dL Total Bilirubin 1.3 H (0.2-1.2) mg/dL AST 25 (5-34) Units/L ALT 71 H (0-55) Units/L Alkaline Phosphatase 91 (38-126) Units/L Albumin 3.0 L D (3.5-5.0) g/dL Consult Discharge Plan - Plan Referrals: Lety Ibarra, GEOPHYSICAL DATA TECHNICIAN [Primary Care Provider] -
--- NOTE | 2016-12-09 19:23 | Event Note ---
Date of Encounter: 12/09/16 Time of Encounter: 18:30 The patient has undergone extensive work up throughout the day. We started with hepatobiliary scan. This demonstrated no evidence of obstruction or leak. There was free flow into the small bowel and some reflux into the stomach. Apparently the choledocholithiasis is not causing any obstruction or delay whatsoever. On examination the patient still did not feel well and had a tender abdomen. I ordered a follow-up CAT scan with GI contrast. I reviewed the results personally and with the radiologist. The previously mentioned pneumatosis was not identified. The radiologist felt that this represented benign diverticuli at the fourth portion of the duodenum. There is no evidence of obstruction or perforation at the fourth portion of the duodenum or the first portion of the jejunum. We specifically reviewed the entire gastrointestinal tract. There is no evidence of obstruction, inflammation, perforation, or contrast leak. There is no evidence of pancreatitis. The patient does however demonstrated new accumulation of fluid around the liver. The source of this fluid is unknown. Clinically the patient presents like a bile leak. This is in contradiction to the findings of the hepatobiliary scan. Based on this inconsistency I think is important to sample and our drain the fluid around the liver. If the fluid is bile and this is a bile leak we will move up the timing for ERCP and stent placement as well as removal of choledocholithiasis. Even though the patient is uncomfortable and has a leukocytosis there are no findings in the abdomen that are of concern for immediate surgical exploration. After discussion with radiologist and family we decided to perform ultrasound drainage of the fluid around the liver and also analyze the fluid around the liver. He will be treated symptomatically until then.
[2016-12-10] MEDS: Piperacillin/Tazobactam 3.375 GM in D5% in Water (Mini-Bag+) 100 ML IVPB SCH ×4 (00:05→23:36)
[2016-12-10] MEDS: *HR* HYDROmorphone (PF) 1 MG/ML SYRINGE IVP PRN ×4 (04:01→12:52)
[2016-12-10 04:31] LABS: Hematocrit 35.7 % (37.5-50.1); Mean Corpuscular HGB Conc 33.1 g/dL (31.6-35.5); Mean Corpuscular Hemoglobin 29.5 pg (28.0-33.3); Mean Corpuscular Volume 89.3 fL (83.0-100.0); Mean Platelet Volume 10.9 fL (9.4-12.4); Platelet Count 169 K/mcL (140-400); Red Cell Distribution Width 14.6 % (11.5-14.5)
[2016-12-10 04:36] LABS: Hemoglobin 11.8 g/dL (12.9-16.9)
[2016-12-10 04:46] LABS: Albumin 2.5 g/dL (3.5-5.0); Albumin/Globulin Ratio 0.7 (1.1-2.2); Bilirubin,Direct 0.6 mg/dL (0.0-0.5); Bilirubin,Indirect 0.5 mg/dL (0.0-1.2); Bilirubin,Total 1.1 mg/dL (0.2-1.2); Calcium 8.7 mg/dL (8.6-10.8); Globulin 3.7 g/dL (2.4-3.5); Potassium 4.1 mEq/L (3.5-4.5); Total Protein 6.2 g/dL (6.0-8.3)
[2016-12-10] MEDS: 0.9 % Sodium Chloride 1,000 ML IVC SCH ×2 (06:08→16:48)
[2016-12-10] MEDS: NORVASC PO SCH (07:47)
[2016-12-10] MEDS: *HR* Metformin 500 MG TABLET PO SCH (08:09)
[2016-12-10 08:55] LABS: INR 1.3; Prothrombin Time 14.4 Seconds (9.4-12.1)
--- NOTE | 2016-12-10 12:15 | Electrocardiograph Report ---
[address] [place], [place] [address] Test Date: 2016-12-08 Pat Name: Jose Mao Department: 105 Room: 3A22 Gender: M Machine Hostler: CHANA : 1945 Requested By: Augusto Quijano Order Number: [id number] Reading MD: Gonzalo Hickman MD Measurements Intervals [place] Rate: 94 P: 55 SD: 187 QRS: 31 QRSD: 87 T: 69 QT: 333 QTc: 385 Interpretive Statements SINUS RHYTHM Electronically Signed On 12-10-2016 12:13:53 EDT by Gonzalo Hickman MD
--- NOTE | 2016-12-10 15:27 | General Surgery Progress Note ---
<Neisha Orellana Geovany - Last Filed: 12/10/16 15:24> Date of Encounter: 12/10/16 Time of Encounter: 14:30 - Assessment and Plan (1) Intra-abdominal fluid collection Current Visit: Yes Status: Acute IR consulted for drainage of fluid collection today No evidence of bile leak on HIDA scan NPO for procedure May have diabetic diet after procedure Supportive care/pain control IV antibiotics- Zosyn IV fluids IS every 1 hour while awake Repeat am labs (2) Abdominal pain Current Visit: Yes Status: Acute Supportive care/pain control IR drainage of intra-abdominal fluid collection today Qualifiers: Abdominal location: right upper quadrant Qualified Code(s): R10.11 - Right upper quadrant pain (3) Ascending cholangitis Current Visit: Yes Status: Acute IV antibiotics- Zosyn (4) Acute kidney injury Current Visit: Yes Status: Acute (5) DVT prophylaxis Current Visit: No Status: Acute EPCDs to bilateral lower extremities for DVT prophylaxis Ambulate hallways TID with assistance Subjective Patient reports: still having pain, voiding w/o difficulty, flatus, no bowel movement, afebrile (Tmax 99.7) Objective Vital Signs - Last 8 Hours Temp Pulse Resp BP Pulse Ox 12/10/16 10:56 98.5 F 118 19 130/73 94 12/10/16 07:57 92 12/10/16 07:31 98.4 F 112 19 128/70 92 Intake and Output 12/09/16 12/10/16 12/10/16 23:59 07:59 15:59 Intake Total 700 / 700 1100 / 1100 100 / 100 Output Total 750 / 750 0 / 0 500 / 500 Balance -50 / -50 1100 / 1100 -400 / -400 Intake: IV Fluids 700 / 700 1100 / 1100 100 / 100 0.9 % Sodium Chloride 1, 600 / 600 1000 / 1000 000 ML @ 100 mls/hr IVC . Q10H [facility] Rx#:[id number] Zosyn 3.375 GM In 100 / 100 100 / 100 100 / 100 Dextrose 5% (Minibag+) 100 ML 100 ML @ 25 mls/hr IVPB Q8HR [facility] Rx#: [id number] Oral 0 / 0 0 / 0 0 / 0 Output: Urine 750 / 750 0 / 0 500 / 500 Other: Meal NPO NPO Weight 85 kg 85 kg Blood Glucose* 147 118 132 Patient Weight 12/10/16 23:59 Weight 85 kg - General physical appearance well developed, well nourished, moderate pain - Eyes normal ocular movement - ENT normal mucosa, atraumatic, normocephalic - Neck Neck exam: trachea midline - Respiratory normal respiratory effort, clear to auscultation, other (diminished bibasilar bases) - Cardiovascular Cardiovascular exam: Present: RRR - Abdomen Abdomen: Present: bowel sounds present, soft, tender Abdominal Tenderness: RUQ - Neurologic CN 2-12 grossly intact - Psychiatric oriented to person, oriented to place, speech is normal - Labs 12/10/16 04:06 12/10/16 04:06 Diabetes panel 12/10/16 Range/Units 04:06 Sodium 137 (136-145) mEq/L Potassium 4.1 (3.5-4.5) mEq/L Chloride 104 (98-109) mEq/L Carbon Dioxide 26 (19-29) mEq/L BUN 46 H D (8-26) mg/dL Creatinine 1.70 H (0.72-1.25) mg/dL Glucose 137 H (70-99) mg/dL Calcium 8.7 (8.6-10.8) mg/dL AST 17 (5-34) Units/L ALT 44 (0-55) Units/L Alkaline Phosphatase 83 (38-126) Units/L Albumin 2.5 L (3.5-5.0) g/dL Calcium panel 12/10/16 Range/Units 04:06 Calcium 8.7 (8.6-10.8) mg/dL Albumin 2.5 L (3.5-5.0) g/dL Pituitary panel 12/10/16 Range/Units 04:06 Sodium 137 (136-145) mEq/L Potassium 4.1 (3.5-4.5) mEq/L Chloride 104 (98-109) mEq/L Carbon Dioxide 26 (19-29) mEq/L BUN 46 H D (8-26) mg/dL Creatinine 1.70 H (0.72-1.25) mg/dL Glucose 137 H (70-99) mg/dL Calcium 8.7 (8.6-10.8) mg/dL Adrenal panel 12/10/16 Range/Units 04:06 Sodium 137 (136-145) mEq/L Potassium 4.1 (3.5-4.5) mEq/L Chloride 104 (98-109) mEq/L Carbon Dioxide 26 (19-29) mEq/L BUN 46 H D (8-26) mg/dL Creatinine 1.70 H (0.72-1.25) mg/dL Glucose 137 H (70-99) mg/dL Calcium 8.7 (8.6-10.8) mg/dL Total Bilirubin 1.1 (0.2-1.2) mg/dL AST 17 (5-34) Units/L ALT 44 (0-55) Units/L Alkaline Phosphatase 83 (38-126) Units/L Albumin 2.5 L (3.5-5.0) g/dL - VTE Documentation of Mechanical Device: Intermittent pneumatic compression device Consult Discharge Plan - Plan Referrals: Lety Ibarra, DIPLOMATIC COURIER [Primary Care Provider] - - Attending Attestation I examined this patient and my medical decision-making was reviewed with the MAINTENANCE JOURNEYMAN/PA/Advanced Practice Nurse/Resident Physician. I agree with the documented findings, disposition and treatment plan as described except to the extent set forth below. <Thiago Gonzales - Last Filed: 12/12/16 07:59> Date of Encounter: 12/10/16 - Assessment and Plan (1) Ascending cholangitis Current Visit: Yes Status: Acute Objective Vital Signs - Last 8 Hours Temp Pulse Resp BP Pulse Ox 12/12/16 07:01 98.4 F 93 18 154/84 93 12/12/16 03:32 97.9 F 87 20 151/75 91 Intake and Output 12/11/16 12/11/16 12/12/16 15:59 23:59 07:59 Intake Total 1340 / 1340 220 / 220 100 / 100 Output Total 452 / 452 830 / 830 275 / 275 Balance 888 / 888 -610 / -610 -175 / -175 Intake: IV Fluids 1100 / 1100 100 / 100 100 / 100 0.9 % Sodium Chloride 1, 1000 / 1000 000 ML @ 100 mls/hr IVC . Q10H [facility] Rx#:[id number] Zosyn 3.375 GM In 100 / 100 100 / 100 100 / 100 Dextrose 5% (Minibag+) 100 ML 100 ML @ 25 mls/hr IVPB Q8HR [facility] Rx#: [id number] Oral 240 / 240 120 / 120 0 / 0 Output: Urine 450 / 450 825 / 825 275 / 275 Wound Drainage 2 / 2 5 / 5 0 / 0 Right Upper Abdomen 2 / 2 5 / 5 0 / 0 Other: Meal Lunch Dinner Percent of Meal Consumed 50% 0% Weight 87.7 kg Blood Glucose* 137 153 114 Patient Weight 12/12/16 23:59 Weight 87.7 kg - Labs 12/12/16 03:58 12/11/16 04:51 - Attending Attestation The patient was seen and evaluated on morning rounds. I discussed his case with interventional radiology and we will place a drain into the. [place] fluid later today. Thiago Gonzales MD FACS
--- NOTE | 2016-12-10 15:47 | IR Procedure Note ---
Date of procedure: 12/10/16 Consent Obtained: Verbal consent Timeout: Correct patient and procedure verified, Correct site verified, Time out performed, Skin prep completed Local anesthetic: Lidocaine 1% Indications: Perihepatic fluid collection Procedure Performed: CT drain placement Site/Technique: RUQ drain Results/Findings: 12fr drain placed. Estimated blood loss (cc): 1 Complications: None; Tolerated procedure well Post Procedure Treatment Plan: Monitoring in pts room.
[2016-12-11] MEDS: *HR* HYDROmorphone (PF) 1 MG/ML SYRINGE IVP PRN ×3 (00:50→13:00)
[2016-12-11] MEDS: 0.9 % Sodium Chloride 1,000 ML IVC SCH (00:53)
[2016-12-11 05:29] LABS: Basophils % 0.2 %; Eosinophils % 0.3 %; Hematocrit 33.4 % (37.5-50.1); Hemoglobin 11.2 g/dL (12.9-16.9); Immature Granulocytes % 0.9 % (0-4); Lymphocytes # 0.7 K/mcL (0.6-4.6); Lymphocytes % 5.9 %; Mean Corpuscular HGB Conc 33.5 g/dL (31.6-35.5); Mean Corpuscular Hemoglobin 29.5 pg (28.0-33.3); Mean Corpuscular Volume 87.9 fL (83.0-100.0); Mean Platelet Volume 10.7 fL (9.4-12.4); Monocytes # 0.8 K/mcL (0.0-1.3); Monocytes % 6.4 %; Neutrophils # 10.7 K/mcL (1.6-8.9); Platelet Count 178 K/mcL (140-400); Red Cell Distribution Width 14.6 % (11.5-14.5); Segmented Neutrophils % 86.3 %
[2016-12-11 05:46] LABS: BUN/Creatinine Ratio 31 (6-26); Calcium 8.8 mg/dL (8.6-10.8); Carbon Dioxide 28 mEq/L (19-29); Chloride 105 mEq/L (98-109); Glucose 118 mg/dL (70-99); Osmolality,Calculated 296 (280-300); Potassium 3.7 mEq/L (3.5-4.5); Sodium 139 mEq/L (136-145); eGFR For African Americans > 60 (> 60); eGFR For Non-African Americans > 60 (> 60)
[2016-12-11 05:59] LABS: Blood Urea Nitrogen 33 mg/dL (8-26)
[2016-12-11] MEDS: Piperacillin/Tazobactam 3.375 GM in D5% in Water (Mini-Bag+) 100 ML IVPB SCH ×3 (08:51→23:09)
[2016-12-11] MEDS: NORVASC PO SCH (08:53)
[2016-12-11] MEDS: *HR* Metformin 500 MG TABLET PO SCH (08:54)
--- NOTE | 2016-12-11 10:48 | General Surgery Progress Note ---
Date of Encounter: 12/11/16 Time of Encounter: 10:47 - Assessment and Plan (1) Acute kidney injury Current Visit: Yes Status: Acute Creatinine 1.06 (was 1.70). Will heplock IVF. Continue with PO diet. (2) Abdominal pain Current Visit: Yes Status: Acute Noted RUQ pain. Drain placed yesterday. Continue to monitor. Continue IV antibiotics. Qualifiers: Abdominal location: right upper quadrant Qualified Code(s): R10.11 - Right upper quadrant pain (3) Ascending cholangitis Current Visit: Yes Status: Acute On IV Zosyn. Continue for now. WBC decreased to 12.4K. Repeat CBC in am. Subjective Patient reports: other (Patient states he has some RUQ pain; pain has improved compared to before IR placed drain. No nausea.) Objective Vital Signs - Last 8 Hours Temp Pulse Resp BP Pulse Ox 12/11/16 07:43 98.6 F 96 18 155/79 91 12/11/16 03:57 98.2 F 100 18 151/81 90 Intake and Output 12/10/16 12/11/16 12/11/16 23:59 07:59 15:59 Intake Total 1350 / 1350 1100 / 1100 Output Total 40 / 40 1165 / 1165 Balance 1310 / 1310 -65 / -65 Intake: IV Fluids 1100 / 1100 1100 / 1100 0.9 % Sodium Chloride 1, 1000 / 1000 1000 / 1000 000 ML @ 100 mls/hr IVC . Q10H [facility] Rx#:[id number] Zosyn 3.375 GM In 100 / 100 100 / 100 Dextrose 5% (Minibag+) 100 ML 100 ML @ 25 mls/hr IVPB Q8HR [facility] Rx#: [id number] Oral 250 / 250 0 / 0 Output: Urine 0 / 0 1150 / 1150 Wound Drainage 40 / 40 15 / 15 Right Upper Abdomen 40 / 40 15 / 15 Other: Meal Dinner Percent of Meal Consumed 75% # Voids 1 Blood Glucose* 149 112 - General physical appearance well nourished, no distress - Respiratory normal expansion, normal respiratory effort - Abdomen Abdomen: Present: soft, tender (Pain to palpation in the RUQ. Minimal DULCE drainage-lightly bilious. Noted to be 40ml yesterday.) - Labs 12/11/16 04:51 12/11/16 04:51 Diabetes panel 12/11/16 Range/Units 04:51 Sodium 139 (136-145) mEq/L Potassium 3.7 (3.5-4.5) mEq/L Chloride 105 (98-109) mEq/L Carbon Dioxide 28 (19-29) mEq/L BUN 33 H D (8-26) mg/dL Creatinine 1.06 (0.72-1.25) mg/dL Glucose 118 H (70-99) mg/dL Calcium 8.8 (8.6-10.8) mg/dL Calcium panel 12/11/16 Range/Units 04:51 Calcium 8.8 (8.6-10.8) mg/dL Pituitary panel 12/11/16 Range/Units 04:51 Sodium 139 (136-145) mEq/L Potassium 3.7 (3.5-4.5) mEq/L Chloride 105 (98-109) mEq/L Carbon Dioxide 28 (19-29) mEq/L BUN 33 H D (8-26) mg/dL Creatinine 1.06 (0.72-1.25) mg/dL Glucose 118 H (70-99) mg/dL Calcium 8.8 (8.6-10.8) mg/dL Adrenal panel 12/11/16 Range/Units 04:51 Sodium 139 (136-145) mEq/L Potassium 3.7 (3.5-4.5) mEq/L Chloride 105 (98-109) mEq/L Carbon Dioxide 28 (19-29) mEq/L BUN 33 H D (8-26) mg/dL Creatinine 1.06 (0.72-1.25) mg/dL Glucose 118 H (70-99) mg/dL Calcium 8.8 (8.6-10.8) mg/dL - VTE Documentation of Mechanical Device: Intermittent pneumatic compression device Consult Discharge Plan - Plan Referrals: Lety Ibarra, HABITAT BIOLOGIST [Primary Care Provider] -
[2016-12-11] MEDS ORDERED: Albuterol 2.5 MG/3 ML NEBULIZER IH PRN (15:39)
[2016-12-12 05:07] LABS: Basophils % 0.2 %; Eosinophils % 0.4 %; Hematocrit 34.8 % (37.5-50.1); Hemoglobin 11.3 g/dL (12.9-16.9); Immature Granulocytes % 1.3 % (0-4); Lymphocytes # 0.9 K/mcL (0.6-4.6); Lymphocytes % 8.6 %; Mean Corpuscular HGB Conc 32.5 g/dL (31.6-35.5); Mean Corpuscular Hemoglobin 28.5 pg (28.0-33.3); Mean Corpuscular Volume 87.9 fL (83.0-100.0); Monocytes % 9.5 %; Neutrophils # 8.6 K/mcL (1.6-8.9); Platelet Count 193 K/mcL (140-400); Red Blood Count 3.96 M/mcL (4.19-5.50); Red Cell Distribution Width 14.4 % (11.5-14.5)
[2016-12-12] MEDS: NORVASC PO SCH (07:34)
[2016-12-12] MEDS: *HR* Metformin 500 MG TABLET PO SCH (07:34)
[2016-12-12] MEDS: Piperacillin/Tazobactam 3.375 GM in D5% in Water (Mini-Bag+) 100 ML IVPB SCH ×2 (07:35→15:32)
[2016-12-12] MEDS: *HR* HYDROmorphone (PF) 1 MG/ML SYRINGE IVP PRN ×2 (07:41→13:08)
--- NOTE | 2016-12-12 08:25 | General Surgery Progress Note ---
Date of Encounter: 12/12/16 Time of Encounter: 07:20 - Assessment and Plan (1) Ascending cholangitis Current Visit: Yes Status: Acute The patient had elevation of his white blood cell count today. The bilirubin has gone up to 1.3. I have ordered a hepatobiliary scan. This will tell me whether or not there is drainage into the duodenum and whether or not there is no obstruction or leak and biliary system. He may require ERCP. Further therapy will be based on these findings. 12/12/2016. Clinical course is consistent with postoperative bile leak. The CAT scan drain was placed and drained bilious material. The patient's white blood cell counts returned to normal and his electrolytes are normal. He will be started on diet. We will continue antibiotics and CAT scan drainage this point Subjective Narrative: The patient feels much better today the patient had CAT scan drain placed with drainage of bilious material from around the liver. This clinically appears to be bile leak which was negative on hepatobiliary scan. Fortunately the patient is pain-free today and his white blood cell count has returned to normal. His electrolytes are normal. We will start him on diet and ambulation. Objective Vital Signs - Last 8 Hours Temp Pulse Resp BP Pulse Ox 12/12/16 07:01 98.4 F 93 18 154/84 93 12/12/16 03:32 97.9 F 87 20 151/75 91 Intake and Output 12/11/16 12/12/16 12/12/16 23:59 07:59 15:59 Intake Total 220 / 220 100 / 100 Output Total 830 / 830 275 / 275 Balance -610 / -610 -175 / -175 Intake: IV Fluids 100 / 100 100 / 100 Zosyn 3.375 GM In 100 / 100 100 / 100 Dextrose 5% (Minibag+) 100 ML 100 ML @ 25 mls/hr IVPB Q8HR [facility] Rx#: [id number] Oral 120 / 120 0 / 0 Output: Urine 825 / 825 275 / 275 Wound Drainage 5 / 5 0 / 0 Right Upper Abdomen 5 / 5 0 / 0 Other: Meal Dinner Percent of Meal Consumed 0% Weight 87.7 kg Blood Glucose* 153 114 Patient Weight 12/12/16 23:59 Weight 87.7 kg - General physical appearance well developed, well nourished, no pain - Respiratory normal expansion, normal respiratory effort, clear to percussion, clear to auscultation - Cardiovascular Cardiovascular exam: Present: RRR, no murmurs/rubs/gallops - Abdomen Abdomen: Present: bowel sounds present, soft, non tender - Incision Incision: Present: clean and dry (CAT scan drainage is draining bile tinged serosanguineous fluid.) - Neurologic normal coordination, normal sensation - Psychiatric oriented to time, oriented to person, oriented to place, speech is normal, memory intact - Labs 12/12/16 03:58 12/11/16 04:51 - VTE Documentation of Mechanical Device: Intermittent pneumatic compression device Consult Discharge Plan - Plan Referrals: Lety Ibarra, BUSINESS ENTERPRISE OFFICER [Primary Care Provider] -
[2016-12-12] MEDS ORDERED: *HR* OxyCODONE/APAP 10/325 TABLET PO PRN (13:13)
[2016-12-12] MEDS ORDERED: Ipratropium/Albuterol Neb 3 ML IH PRN (13:14)
[2016-12-12] MEDS ORDERED: *HR* HYDROmorphone (PF) 1 MG/ML SYRINGE IVP PRN (13:19)
[2016-12-12] MEDS: *HR* OxyCODONE/APAP 10/325 TABLET PO PRN ×2 (13:23→21:10)
[2016-12-12] MEDS: 0.9 % Sodium Chloride 1,000 ML IVC SCH (19:26)
[2016-12-13] MEDS: Piperacillin/Tazobactam 3.375 GM in D5% in Water (Mini-Bag+) 100 ML IVPB SCH ×2 (01:28→08:38)
[2016-12-13] MEDS: NORVASC PO SCH (08:38)
[2016-12-13] MEDS: *HR* Metformin 500 MG TABLET PO SCH (08:38)
[2016-12-13] MEDS ORDERED: Ondansetron ODT 4 MG TAB.RAPDIS SL PRN (14:10)
[2016-12-13] MEDS: *HR* OxyCODONE/APAP 10/325 TABLET PO PRN ×2 (14:15→22:03)
--- NOTE | 2016-12-13 15:12 | General Surgery Progress Note ---
<Silvia Baca - Last Filed: 12/13/16 15:38> Date of Encounter: 12/13/16 Time of Encounter: 15:11 - Assessment and Plan (1) Ascending cholangitis Current Visit: Yes Status: Acute S/P laparoscopic cholecystectomy and non-obstructing choledocholithiasis was identified. Developed bile leak and a pigtail drain was placed. Minimal output in drain over the last 24 hours. Will d/c drain and if no complications will plan begin d/c planning tomorrow Diabetic diet No IV access, switched meds to PO Start Augmentin (2) Intra-abdominal fluid collection Current Visit: Yes Status: Acute S/P laparoscopic cholecystectomy and non-obstructing choledocholithiasis was identified. Developed bile leak and a pigtail drain was placed. Minimal output in drain over the last 24 hours. Drain d/c'd without complication. Covered with dry dressing. Pt may shower. if no complications will plan begin d/c planning tomorrow Diabetic diet No IV access, switched meds to PO Start Augmentin (3) Atelectasis, bilateral Current Visit: Yes Status: Acute With hypoxia. Will begin d/c planning for tomorrow on home O2. Will need to follow-up with PCP after. Subjective Patient reports: no new complaints, feels better, pain is less, tolerating a regular diet, voiding w/o difficulty, flatus, bowel movement, afebrile Narrative: Jose denies chest pain, shortness of breath, abdominal pain, nausea, vomiting, or diarrhea. He reports flatus and bowel movements x2 today. He states he is tolerating his diet and avoiding without difficulty. He states this discomfort is controlled on current regimen. Objective Vital Signs - Last 8 Hours Temp Pulse Resp BP Pulse Ox 12/13/16 12:34 92 12/13/16 11:01 98.5 F 92 18 139/70 95 12/13/16 08:45 92 12/13/16 07:36 98.2 F 89 18 115/66 92 Intake and Output 12/12/16 12/13/16 12/13/16 23:59 07:59 15:59 Intake Total 340 / 340 100 / 100 720 / 720 Output Total 470 / 470 778 / 778 0 / 0 Balance -130 / -130 -678 / -678 720 / 720 Intake: IV Fluids 100 / 100 100 / 100 Zosyn 3.375 GM In 100 / 100 100 / 100 Dextrose 5% (Minibag+) 100 ML 100 ML @ 25 mls/hr IVPB Q8HR [facility] Rx#: [id number] Oral 240 / 240 0 / 0 720 / 720 Output: Urine 450 / 450 775 / 775 0 / 0 Wound Drainage 20 / 20 3 / 3 0 / 0 Right Upper Abdomen 20 20 3 / 3 0 / 0 Other: Meal Dinner Lunch Percent of Meal Consumed 80% 100% Weight 90.1 kg Blood Glucose* 128 104 184 - General physical appearance well developed, well nourished, no distress - Eyes normal ocular movement - ENT normal mucosa - Neck Neck exam: trachea midline - Respiratory normal expansion, normal respiratory effort, other (Tight) - Cardiovascular Cardiovascular exam: Present: RRR - Abdomen Abdomen: Present: bowel sounds present, soft, non tender, wound (Pigtail drain removed without complication) - Incision Incision: Present: clean and dry, intact - Integumentary no rash - Neurologic CN 2-12 grossly intact - Psychiatric oriented to time, oriented to person, oriented to place - Labs 12/12/16 03:58 12/11/16 04:51 - VTE Documentation of Mechanical Device: Intermittent pneumatic compression device Consult Discharge Plan - Plan Referrals: Lety Ibarra, TOLL TEST WORKER [Primary Care Provider] - <Thiago Gonzales - Last Filed: 12/13/16 20:29> Date of Encounter: 12/13/16 - Assessment and Plan (1) Ascending cholangitis Current Visit: Yes Status: Acute Objective Vital Signs - Last 8 Hours Temp Pulse Resp BP Pulse Ox 12/13/16 20:03 98.5 F 89 14 139/60 95 12/13/16 15:28 98.3 F 94 18 147/75 92 12/13/16 12:34 92 Intake and Output 12/13/16 12/13/16 12/13/16 07:59 15:59 23:59 Intake Total 100 / 100 720 / 720 360 / 360 Output Total 778 / 778 0 / 0 0 / 0 Balance -678 / -678 720 / 720 360 / 360 Intake: IV Fluids 100 / 100 Zosyn 3.375 GM In 100 / 100 Dextrose 5% (Minibag+) 100 ML 100 ML @ 25 mls/hr IVPB Q8HR [facility] Rx#: [id number] Oral 0 / 0 720 / 720 360 / 360 Output: Urine 775 / 775 0 / 0 0 / 0 Wound Drainage 3 / 3 0 / 0 Right Upper Abdomen 3 / 3 0 / 0 Other: Meal Lunch Dinner Percent of Meal Consumed 100% 100% Blood Glucose* 104 184 126 - Labs 12/12/16 03:58 12/11/16 04:51 - Attending Attestation I examined this patient and my medical decision-making was reviewed with the FOOD BAGGING MACHINE OPERATOR/PA/Advanced Practice Nurse/Resident Physician. I agree with the documented findings, disposition and treatment plan as described except to the extent set forth below. The patient is seen in evaluated with the clinical nurse practitioner. He is symptomatically improved and has no abdominal pain. His white blood cell count was returning to normal. The CAT scan drain is removed and we will plan on discharge tomorrow morning. He is tolerating diet. Thiago Gonzales MD FACS
[2016-12-14] MEDS: *HR* Metformin 500 MG TABLET PO SCH (08:40)
[2016-12-14] MEDS: NORVASC PO SCH (08:41)
[2016-12-14 11:25] VITALS: BP 124/70
[2016-12-14] MEDS: *HR* OxyCODONE/APAP 10/325 TABLET PO PRN (11:27)
--- NOTE | 2016-12-14 11:43 | Discharge Summary ---
<Silvia Baca - Last Filed: 12/14/16 11:58> Date of Encounter: 12/14/16 Time of Encounter: 11:42 - Discharge Diagnosis (1) Ascending cholangitis Priority: Primary Status: Resolved Comments: S/P laparoscopic cholecystectomy and non-obstructing choledocholithiasis was identified. Developed bile leak and a pigtail drain was placed and then d/c'd on 12/13/2016 Started Augmentin (2) Intra-abdominal fluid collection Priority: Secondary Status: Resolved Comments: S/P laparoscopic cholecystectomy and non-obstructing choledocholithiasis was identified. Developed bile leak and a pigtail drain was placed and then d/c'd on 12/13/2016 Started Augmentin (3) Atelectasis, bilateral Priority: Secondary Status: Chronic Comments: Home on O2 and follow-up with PCP - Discharge Medications Prescriptions: Ondansetron ODT [Zofran ODT] 4 mg SL Q6HR PRN #30 tab.rapdis PRN Reason: Nausea And Vomiting OxyCODONE/APAP 10/325 [Percocet 10/325 MG] 1 each PO Q6HR PRN #30 tablet PRN Reason: Moderate Pain Amoxicillin/Clavulanate [Augmentin] 875 mg PO BIDWM #26 tablet Docusate [Colace] 100 mg PO DAILY #30 capsule Home Medications: Allopurinol [Zyloprim] 300 mg PO DAILY 09/10/16 [History] Amlodipine Besylate 10 mg PO DAILY 09/10/16 [History] Aspirin Enteric Coated [Aspirin EC] 81 mg PO DAILY 09/10/16 [History] Hydrochlorothiazide [Microzide] 12.5 mg PO DAILY 09/10/16 [History] Metformin HCl [Metformin HCl ER] 500 mg PO DAILY 09/10/16 [History] Prazosin HCl [Minipress] 5 mg PO BID 09/10/16 [History] Acetaminophen [Tylenol] 1,000 mg PO Q6HR PRN 12/06/16 [History] OxyCODONE/APAP 10/325 [Percocet 10/325 MG] 1 tab PO Q6HR PRN 12/08/16 [History] Amoxicillin/Clavulanate [Augmentin] 875 mg PO BIDWM #26 tablet 12/14/16 [Rx] Docusate [Colace] 100 mg PO DAILY #30 capsule 12/14/16 [Rx] Ondansetron ODT [Zofran ODT] 4 mg SL Q6HR PRN #30 tab.rapdis 12/14/16 [Rx] OxyCODONE/APAP 10/325 [Percocet 10/325 MG] 1 each PO Q6HR PRN #30 tablet [Rx] Allergies/Adverse Reactions: Allergies No Known Allergies Allergy (Verified 12/06/16 07:08) General Surgery Exam Initial Vital Signs Temp Pulse Resp BP Pulse Ox 97.8 F 98 20 126/76 89 12/08/16 05:47 12/08/16 05:47 12/08/16 05:47 12/08/16 05:47 12/08/16 05:47 - General physical appearance well developed, well nourished, no distress - Eyes normal ocular movement - ENT atraumatic, normocephalic - Neck no masses, no venous distension - Respiratory other (Decreased, tight) - Cardiovascular Cardiovascular exam: Present: JVD Additional Comments: 2+ pitting edema to the bilateral lower extremities. - Abdomen Abdomen general surgery: Present: bowel sounds present, soft, non tender - Incision Incision: Present: clean and dry, intact - Integumentary Integumentary general surgery: Present: warm and dry - Neurologic Present: CN 2-12 grossly intact - Musculoskeletal Present: normal gait - Psychiatric Psychiatric general surgery: Present: A&Ox3, appropriate, oriented to person, oriented to place, oriented to time, speech is normal Date of admission: 12/08/16 08:36 Primary care physician: Lety Ibarra CNP Consults: 12/10/16 07:31 Consult to Interventional Radiology [CONS] Stat Consulting Provider: Radiology Interventional Cols Reason for Consult: please place a drain into the fluid around the liver. HB scan negative for leak, but patient clinicallly consistent with bile leak Time Notified: 07:30 Call Completed: Yes Discharging clinician: Thiago Baca) - Patient Status Disposition: Home, Self-Care Condition: Good - Discharge Instructions Instructions: Laparoscopic Cholecystectomy (DC) Follow Up With: Lety Ibarra CNP [Primary Care Provider] - Neisha Orellana CNP [Advanced Practice Nurse] - (8:30 am) Additional Instructions: -No lifting, pulling, pushing, greater than 15 pounds for 2 weeks. -Okay to climb stairs. -May resume driving when you have been off narcotics for 24 hours and you are safe to react in the car. -You may shower beginning today. Wash the incisions daily with soap and water and pat dry. -No swimming, tough bath, or soaking for 2 weeks. -Return to the office for follow-up as directed. -Report any increase in discomfort or any new fevers greater than 101.5 degrees and signs of infection such as redness, swelling, or drainage from the incisions. Continue Augmentin for 13 days - Diet and Activity Activity: increase activity as tolerated, wear oxygen at all times Diet: advance to your usual diet - Hospital Course Hospital course: Mr. Mao is a 71 year old male who presented for developed abdominal pain/P laparoscopic cholecystectomy and non-obstructing choledocholithiasis. He had originally been scheduled to see gastroenterology for an ERCP and was found to have leukocytosis and incidental jejunal pneumotosis. He was admitted with a presumptive diagnosis of ascending cholangitis. He was treated with in antibiotics and his clinical course was consistent with a bile leak. A pigtail drain was placed and he improved. His hospital course was complicated by atelectasis and hypoxia. He responded well to oxygen per nasal cannula. He will be discharged to home with oxygen per nasal cannula and follow up with his PCP for continuation. He is tolerating a diet without nausea or vomiting. He reports flatus and bowel movement today. He denies increase in abdominal pain and states discomfort is controlled with the current regimen. He is ambulating and voiding without difficulty. We will begin discharge planning to home with O2 per nasal cannula, resume regular diet, and follow-up in the office with the nurse practitioner on December 20, 2016. - Time Spent with Patient Total time spent providing and/or coordinating discharge services: Labs on day of discharge: Labs from last 24 hours 12/13/16 12/13/16 12/13/16 16:33 11:03 07:38 POC Glucose 91 H 184 H 104 H Preliminary micro results at discharge 12/10/16 16:30 Anaerobic Culture - Preliminary Abdomen At this time, no anaerobic growth is present. The culture will be finalized after 5 days of incubation. - Impressions ITS Impressions Bile Acid Absorption NM 12/09/16 08:52 IMPRESSION: No findings of active bile leak. D/ / Kel Van MD / Kel Van MD Interpreting Provider: Kel Van MD X-Ray 12/09/16 12:30 IMPRESSION: No acute abdominal radiographic abnormality. Bibasilar airspace disease, atelectasis and/or pneumonia. D/ / Lety Glaser Cha, MD / Lety Glaser Cha, MD Interpreting Provider: Lety Glaser Cha, MD Abdomen/Pelvis CT 12/09/16 15:32 IMPRESSION: Interval increase in size of small bilateral pleural effusions with increased bibasilar airspace disease, atelectasis and/or pneumonia. Interval development of small moderate amount of abdominopelvic ascites which could be reactive. Correlation to exclude bile leak or infectious process is recommended. These findings were discussed with the physician caring for the patient at the time of interpretation on today's date D/ / Lety Glaser Cha, MD / Lety Glaser Cha, MD Interpreting Provider: Lety Glaser Cha, MD Retroperitoneal Abscess Drainage 12/10/16 00:00 IMPRESSION: Successful CT guided placement of a right upper quadrant perihepatic drain. D/ / Daquan Delgado MD / Daquan Delgado MD Interpreting Provider: Daquan Delgado MD <Thiago Gonzales - Last Filed: 12/14/16 20:57> Date of Encounter: 12/14/16 - Discharge Diagnosis (1) Ascending cholangitis Status: Resolved General Surgery Exam Initial Vital Signs Temp Pulse Resp BP Pulse Ox 97.8 F 98 20 126/76 89 12/08/16 05:47 12/08/16 05:47 12/08/16 05:47 12/08/16 05:47 12/08/16 05:47 Date of admission: 12/08/16 08:36 Primary care physician: Lety Ibarra CNP Consults: 12/10/16 07:31 Consult to Interventional Radiology [CONS] Stat Consulting Provider: Radiology Interventional Cols Reason for Consult: please place a drain into the fluid around the liver. HB scan negative for leak, but patient clinicallly consistent with bile leak Time Notified: 07:30 Call Completed: Yes - Hospital Course Hospital course: Mr. Mao is a 71 year old male - Time Spent with Patient Total time spent providing and/or coordinating discharge services: Labs on day of discharge: Labs from last 24 hours 12/14/16 12/14/16 12/13/16 11:19 07:00 20:00 POC Glucose 144 H 100 H 126 H Preliminary micro results at discharge 12/10/16 16:30 Anaerobic Culture - Preliminary Abdomen At this time, no anaerobic growth is present. The culture will be finalized after 5 days of incubation. - Impressions ITS Impressions Bile Acid Absorption NM 12/09/16 08:52 IMPRESSION: No findings of active bile leak. D/ / Kel Van MD / Kel Van MD Interpreting Provider: Kel Van MD X-Ray 12/09/16 12:30 IMPRESSION: No acute abdominal radiographic abnormality. Bibasilar airspace disease, atelectasis and/or pneumonia. D/ / Lety Glaser Cha, MD / Lety Glaser Cha, MD Interpreting Provider: Lety Glaser Cha, MD Abdomen/Pelvis CT 12/09/16 15:32 IMPRESSION: Interval increase in size of small bilateral pleural effusions with increased bibasilar airspace disease, atelectasis and/or pneumonia. Interval development of small moderate amount of abdominopelvic ascites which could be reactive. Correlation to exclude bile leak or infectious process is recommended. These findings were discussed with the physician caring for the patient at the time of interpretation on today's date D/ / Lety Glaser Cha, MD / Lety Glaser Cha, MD Interpreting Provider: Lety Glaser Cha, MD Retroperitoneal Abscess Drainage 12/10/16 00:00 IMPRESSION: Successful CT guided placement of a right upper quadrant perihepatic drain. D/ / Daquan Delgado MD / Daquan Delgado MD Interpreting Provider: Daquan Delgado MD - Attending Attestation I examined this patient and my medical decision-making was reviewed with the ELECTRIC DISTRIBUTION ENGINEER/PA/Advanced Practice Nurse/Resident Physician. I agree with the documented findings, disposition and treatment plan as described except to the extent set forth below. The patient is seen and evaluated on morning rounds and ready for discharge. I will see him as an outpatient. Thiago Gonzales MD FACS
== END 2016-12-14 13:05 | disposition home or self-care (01) | DRG 394 ==
LOC: EMEROO 05:46 → 3ANU 08:36
PROVIDERS: ADMIT Surgery; ATTEND Surgery
PROC: IRDRAIN (2016-12-10 09:15)